=== PATIENT | female | born 1960 | race Hispanic/Latino ===

== ENCOUNTER 2018-11-04 19:52 | Emergency (ER) | payer BC ==
[2018-11-04] MEDS ORDERED: HYDROCODONE/APAP 5/325 MG TAB ONE (20:37)
[2018-11-04] MEDS ORDERED: KETOROLAC 30 MG/ML INJ ONE (20:37)
--- NOTE | 2018-11-04 21:10 | ER ---
Nurse's Notes [facility] Name: Salud Carlton Age: 58 yrs Sex: Female : 1960 Arrival Date: 11/04/2018 Time: 20:03 Bed 13 Private MD: Diagnosis: Osteoarthritis of first carpometacarpal joint, unspecified Presentation: 11/04 20:07 Presenting complaint: Patient states: "yesterday I woke up and my arm was hurting in my aj1 right wrist. My gave me this wrist thing (splint) but it's still hurting."Denies injury to right hand. Transition of care: patient was not received from another setting of care. Onset of symptoms was November 03, 2018. Risk Assessment: Do you want to hurt yourself or someone else? Patient reports no desire to harm self or others. Initial Sepsis Screen: Does the patient meet any 2 criteria? HR > 90 bpm. No. Patient's initial sepsis screen is negative. Does the patient have a suspected source of infection? No. Patient's initial sepsis screen is negative. Care prior to arrival: None. 20:07 Method Of Arrival: Ambulatory aj1 20:07 Acuity: LIZY 4 aj1 Triage Assessment: 20:10 General: Appears in no apparent distress. uncomfortable, Behavior is calm, cooperative, aj1 appropriate for age. Pain: Complains of pain in dorsal aspect of right wrist and palmar aspect of right wrist Pain currently is 10 out of 10 on a pain scale. Neuro: Level of Consciousness is awake, alert, obeys commands. Cardiovascular: Patient's skin is warm and dry. Respiratory: Airway is patent Respiratory effort is even, unlabored, Respiratory pattern is regular, symmetrical. Historical: - Allergies: 20:10 No Known Allergies; aj1 - Home Meds: 20:10 Advair Diskus Inhl [Active]; Singulair Oral [Active]; aj1 - PMHx: 20:10 Asthma; aj1 - Immunization history:: Flu vaccine is not up to date. - Social history:: Smoking status: Patient/guardian denies using tobacco. - Ebola Screening: : Patient denies travel to an Ebola-affected area in the 21 days before illness onset. Screenin:20 Abuse screen: Denies threats or abuse. Nutritional screening: No deficits noted. jb4 Tuberculosis screening: No symptoms or risk factors identified. Fall Risk None identified. Assessment: 20:20 General: Appears in no apparent distress. uncomfortable, Behavior is calm, cooperative, jb4 appropriate for age. Pain: Complains of pain in right wrist and thumb Pain radiates to right hand Pain currently is 8 out of 10 on a pain scale. Neuro: Level of Consciousness is awake, alert, obeys commands, Oriented to person, place, time, situation. Cardiovascular: Patient's skin is warm and dry. Respiratory: Airway is patent Respiratory effort is even, unlabored, Respiratory pattern is regular, symmetrical. GI: No signs and/or symptoms were reported involving the gastrointestinal system. : No signs and/or symptoms were reported regarding the genitourinary system. EENT: No signs and/or symptoms were reported regarding the EENT system. Derm: Skin is intact, Skin is pink, warm \\T\\ dry. Musculoskeletal: Circulation, motion, and sensation intact. 21:12 Reassessment: Patient appears in no apparent distress at this time. Patient and/or jb4 family updated on plan of care and expected duration. Pain level reassessed. Patient is alert, oriented x 3, equal unlabored respirations, skin warm/dry/pink. Vital Signs: 20:10 BP 146 / 92; Pulse 92; Resp 18; Temp 98.3(O); Pulse Ox 97% on R/A; Weight 107.05 kg aj1 (R); Height 5 ft. 5 in. (165.10 cm) (R); Pain 10/10; 21:12 BP 121 / 68; Pulse 76; Resp 18; Pulse Ox 96% on R/A; jb4 20:10 Body Mass Index 39.27 (107.05 kg, 165.10 cm) aj1 ED Course: 20:03 Patient arrived in ED. am2 20:09 Triage completed. aj1 20:10 Arm band placed on Patient placed in an exam room. aj1 20:12 Natasha Chun FNP-C is [facility]. snw 20:12 Ray Salazar MD is Attending Physician. snw 20:19 Giovana Kearney, RN is Primary Nurse. aj1 20:20 Patient has correct armband on for positive identification. Bed in low position. Call jb4 light in reach. Side rails up X 1. 21:09 Primary Nurse role handed off by Giovana Kearney, RN jb4 21:09 Antonio Hinojosa, RN is Primary Nurse. jb4 21:12 X-ray completed. Portable x-ray completed in exam room. Patient tolerated procedure ml well. 21:13 Wrist Right 3 View XRAY In Process Unspecified. EDMS 21:34 No provider procedures requiring assistance completed. Patient did not have IV access jb4 during this emergency room visit. Administered Medications: 20:35 Drug: TORadol 60 mg Route: IM; Site: left gluteus; aj1 21:14 Follow up: Response: No adverse reaction; Pain is decreased jb4 20:35 Drug: [place] 5 mg-325 mg 1 tabs Route: PO; aj1 21:13 Follow up: Response: No adverse reaction jb4 Outcome: 21:10 Discharge ordered by . snw 21:34 Discharged to home ambulatory, with family. jb4 21:34 Condition: stable 21:34 Discharge instructions given to patient, family, Instructed on discharge instructions, follow up and referral plans. medication usage, Demonstrated understanding of instructions, follow-up care, medications, Prescriptions given X 1. 21:36 Patient left the ED. jb4 Signatures: Dispatcher [employer] EDID Giovana Kearney, RN RN aj1 Natasha Chun, RUBBER STAMP DIES INSPECTOR-C RUBBER STAMP DIES INSPECTOR-Kristen Keating James, RN RN jb4 Davina Juarez
--- NOTE | 2018-11-04 21:10 | EDPHYS ---
Physician Documentation [facility] Name: Salud Carlton Age: 58 yrs Sex: Female : 1960 Arrival Date: 11/04/2018 Time: 20:03 Bed 13 Private MD: ED Physician Ray Salazar HPI: 11/04 20:21 This 58 yrs old Female presents to ER via Ambulatory with complaints of Hand snw Pain. 20:21 The patient or guardian reports decreased range of motion, pain, weakness. The snw complaints affect the CMC of right thumb. Context: The problem was sustained at an unknown location, resulted from a repetitive motion, works in tool room . Onset: The symptoms/episode began/occurred suddenly, today, and became worse and became persistent. Associated signs and symptoms: The patient has no apparent associated signs or symptoms. Severity of symptoms: At their worst the symptoms were moderate. The patient has not experienced similar symptoms in the past. It is unknown whether or not the patient has recently seen a physician. Historical: - Allergies: 20:10 No Known Allergies; aj1 - Home Meds: 20:10 Advair Diskus Inhl [Active]; Singulair Oral [Active]; aj1 - PMHx: 20:10 Asthma; aj1 - Immunization history:: Flu vaccine is not up to date. - Social history:: Smoking status: Patient/guardian denies using tobacco. - Ebola Screening: : Patient denies travel to an Ebola-affected area in the 21 days before illness onset. ROS: 20:20 Constitutional: Negative for fever, chills, and weight loss, Eyes: Negative for injury, snw pain, redness, and discharge, ENT: Negative for injury, pain, and discharge, Neck: Negative for injury, pain, and swelling, Cardiovascular: Negative for chest pain, palpitations, and edema, Respiratory: Negative for shortness of breath, cough, wheezing, and pleuritic chest pain, Abdomen/GI: Negative for abdominal pain, nausea, vomiting, diarrhea, and constipation, Back: Negative for injury and pain, : Negative for injury, bleeding, discharge, and swelling, MS/Extremity: Negative for injury and deformity, + right thumb/wrist pain, decreased range of motion, decreased strength secondary to pain Skin: Negative for injury, rash, and discoloration, Neuro: Negative for headache, weakness, numbness, tingling, and seizure. Exam: 20:19 Head/Face: Normocephalic, atraumatic. Eyes: Pupils equal round and reactive to light, snw extra-ocular motions intact. Lids and lashes normal. Conjunctiva and sclera are non-icteric and not injected. Cornea within normal limits. Periorbital areas with no swelling, redness, or edema. ENT: Nares patent. No nasal discharge, no septal abnormalities noted. Tympanic membranes are normal and external auditory canals are clear. Oropharynx with no redness, swelling, or masses, exudates, or evidence of obstruction, uvula midline. Mucous membranes moist. Neck: Trachea midline, no thyromegaly or masses palpated, and no cervical lymphadenopathy. Supple, full range of motion without nuchal rigidity, or vertebral point tenderness. No Meningismus. Chest/axilla: Normal chest wall appearance and motion. Nontender with no deformity. No lesions are appreciated. Cardiovascular: Regular rate and rhythm with a normal S1 and S2. No gallops, murmurs, or rubs. Normal PMI, no JVD. No pulse deficits. Respiratory: Lungs have equal breath sounds bilaterally, clear to auscultation and percussion. No rales, rhonchi or wheezes noted. No increased work of breathing, no retractions or nasal flaring. Abdomen/GI: Soft, non-tender, with normal bowel sounds. No distension or tympany. No guarding or rebound. No evidence of tenderness throughout. Back: No spinal tenderness. No costovertebral tenderness. Full range of motion. Skin: Warm, dry with normal turgor. Normal color with no rashes, no lesions, and no evidence of cellulitis. Neuro: Awake and alert, GCS 15, oriented to person, place, time, and situation. Cranial nerves II-XII grossly intact. Motor strength 5/5 in all extremities. Sensory grossly intact. Cerebellar exam normal. Normal gait. Psych: Awake, alert, with orientation to person, place and time. Behavior, mood, and affect are within normal limits. 20:19 Constitutional: The patient appears alert, awake, anxious. 20:19 Musculoskeletal/extremity: Extremities: grossly normal except: noted in the dorsal aspect of right wrist: decreased ROM, pain, ROM: limited active range of motion due to pain, in the dorsal aspect of right wrist, Circulation is intact in all extremities. Sensation intact. Compartment Syndrome exam of affected extremity: is normal. Vital Signs: 20:10 BP 146 / 92; Pulse 92; Resp 18; Temp 98.3(O); Pulse Ox 97% on R/A; Weight 107.05 kg aj1 (R); Height 5 ft. 5 in. (165.10 cm) (R); Pain 10/10; 21:12 BP 121 / 68; Pulse 76; Resp 18; Pulse Ox 96% on R/A; jb4 20:10 Body Mass Index 39.27 (107.05 kg, 165.10 cm) aj1 MDM: 20:14 Patient medically screened. snw 21:11 Data reviewed: vital signs, nurses notes. Data interpreted: Pulse oximetry: on room air snw is 97 %. Counseling: I had a detailed discussion with the patient and/or guardian regarding: the historical points, exam findings, and any diagnostic results supporting the discharge/admit diagnosis, radiology results, the need for outpatient follow up, to return to the emergency department if symptoms worsen or persist or if there are any questions or concerns that arise at home. Special discussion: I have referred the patient to see his PCP for further evaluation of high blood pressure. Based on the history and exam findings, there is no indication for further emergent testing or inpatient evaluation. I discussed with the patient/guardian the need to see the orthopedic surgeon for further evaluation of the symptoms. 11/04 20:18 Order name: Wrist Right 3 View XRAY snw 11/04 20:19 Order name: Thumb Spica Splint: right; Complete Time: 20:34 snw 11/04 21:25 Order name: EKG; Complete Time: 21:25 snw 11/04 21:25 Order name: EKG - Nurse/Tech; Complete Time: 21:33 snw Administered Medications: 20:35 Drug: TORadol 60 mg Route: IM; Site: left gluteus; aj1 21:14 Follow up: Response: No adverse reaction; Pain is decreased jb4 20:35 Drug: [place] 5 mg-325 mg 1 tabs Route: PO; aj1 21:13 Follow up: Response: No adverse reaction jb4 Disposition: 11/04/18 21:10 Discharged to Home. Impression: Osteoarthritis of first carpometacarpal joint, unspecified. - Condition is Stable. - Discharge Instructions: Arthritis, Cast or Splint Care, Adult, Cryotherapy, Heat Therapy. - Prescriptions for Mobic 7.5 mg Oral Tablet - take 1 tablet by ORAL route once daily take with food; 20 tablet. - Work release form, Medication Reconciliation Form, Thank You Letter, Antibiotic Education, Prescription Opioid Use form. - Follow up: Private Physician; When: 2 - 3 days; Reason: Recheck today's complaints, Continuance of care, Re-evaluation by your physician. Follow up: Emergency Department; When: As needed; Reason: Worsening of condition. Addendum: 11/07/2018 06:46 Co-signature as Attending Physician, Ray Salazar MD I agree with the assessment and k dr plan of care. Signatures: Dispatcher [employer] EDGiovana Sheldon, RN RN aj1 Ray Salazar MD MD [facility] Natasha Chun, DIABETES TRAINER-C DIABETES TRAINER-Csnw Antonio Hinojosa, RN RN jb4 Corrections: (The following items were deleted from the chart) 11/04 21:36 21:10 11/04/2018 21:10 Discharged to Home. Impression: Osteoarthritis of first jb4 carpometacarpal joint, unspecified. Condition is Stable. Forms are Medication Reconciliation Form, Thank You Letter, Antibiotic Education, Prescription Opioid Use. Follow up: Private Physician; When: 2 - 3 days; Reason: Recheck today's complaints, Continuance of care, Re-evaluation by your physician. Follow up: Emergency Department; When: As needed; Reason: Worsening of condition. snw
--- NOTE | 2018-11-05 09:22 | EKG ---
Test Date: 2018-11-04 Test Time: 21:28:44 Balance Assembler: SALVADOR MEASUREMENT RESULTS: Intervals: Rate: 72 SD: 136 QRSD: 88 QT: 372 QTc: 407 [place]: P: 46 SD: 136 QRS: 69 T: 50 INTERPRETIVE STATEMENTS: Normal sinus rhythm Normal ECG Compared to ECG 07/08/2010 14:18:28 No significant changes Electronically Signed On 11-05-18 09:21:14 CDT by Cesar Crouch
--- NOTE | 2018-11-05 11:29 | RAD REPORT ---
EXAM DESCRIPTION: RAD - Wrist Right 3 View - 11/04/2018 9:20 pm CLINICAL HISTORY: PAIN Pain COMPARISON: No comparisons FINDINGS: Subtle lucency is seen in the region of the scaphoid neck. If patient has snuffbox tendern ess and a history of trauma, scaphoid fracture would be possible. Otherwise, no significant bone or joint abnormality detected.
== END 2018-11-04 21:36 | disposition home or self-care (01) ==
LOC: ER 19:52
DX: M18.11 Unilateral primary osteoarthritis of first carpometacarpal joint, right hand (principal); J45.909 Unspecified asthma, uncomplicated
CPT/HCPCS: 93005; 96372; 99283

== ENCOUNTER 2020-07-22 13:20 | Emergency (ER) | payer BC ==
--- OUTSIDE RECORDS SUMMARY | 2020-07-22 13:23 | XMS REPORT | Summary of Care ---
:1960 Author Organization [facility] Address [address] [place] [id number] Care Team Providers Name Role Phone Pcp, Does Not Have A Primary Care Provider Reason for Visit Reason Onset Date Comments Refill Request 07/19/2020 Encounter Details Date Type Department Care Team Description 07/19/2020 Refill [facility] Pediatric and Doctor Unassign ed, No Refill Request Adult [facility]- [place] Name [address] [facility], [address] [place] [address] [address] [place] [address] [place] [address] Allergies No Known Allergiesdocumented as of this encounter (statuses as of 07/22/2020) Medications Medication Sig Dispensed Refills Start Date End Date Status fluticasone (FLONASE) Use 2 Sprays in 0 Active 50 mcg/Actuation nasal each nostril spray daily. montelukast Take 10 mg by 0 Acti ve (SINGULAIR) 10 mg mouth at bedtime. tablet ADVAIR DISKUS 500-50 Inhale 1 Puff 2 0 11/07/2018 Active mcg/dose inhalation (two) times daily. disk fexofenadine HCl Take 1 tablet by 0 Active (ROMULO ALLERGY ORAL) mouth daily. triamcinolone Apply to area(s) 15 g 1 12/20/2019 Active acetonide 0.1 % 2 (two) times ointmentIndications: daily. Apply to Dyshidrosis affected region of the hand nystatin 100,000 Apply to area(s) 15 g 0 04/05/2020 Active unit/gram 2 (two) times powderIndications: daily. Rash albuterol 90 Inhale 2 Puffs 8.5 g 0 04/16/2020 A ctive mcg/actuation every 4 (four) inhalerIndications: hours as needed Shortness of breath, for Wheezing or Suspected COVID-19 Shortness of virus infection Breath. fluconazole (DIFLUCAN) Take 1 tablet by 5 tablet 0 07/19/2020 Active 200 mg mouth daily. tabletIndications: Oral thrush documented as of this encounter (statuses as of 07/22/2020) Active Problems Problem Noted Date Environmental allergies 09/19/2019 Prediabetes 02/13/2019 Low libido 02/09/2019 Chronic vulvitis 02/09/2019 SANTANA (dyspnea on exertion) 02/08/2019 Chronic venous insufficiency 02/08/2019 Bilateral lower extremity edema 02/08/2019 Fatigue, unspecified type 02/08/2019 Obesity (BMI 30-39.9) 02/08/2019 Other depression 02/08/2019 Chronic right-sided low back pain without sciatica Nasal polyp 02/08/2019 documented as of this encounter (statuses as of 07/22/2020) Social History Tobacco Use Types Packs/Day Years Used Date Former Smoker Cigarettes Quit: 12/14/19 04 Smokeless Tobacco: Never Used Alcohol Use Drinks/Week oz/Week Comments Yes ocassional Sex Assigned at Date Recorded Not on file documented as of this encounter Last Filed Vital Signs Not on filedocumented in this encounter Plan of Treatment Health Maintenance Due Date Last Done Comments Depression Screening 1973 DTaP,Tdap,and Td Vaccines (1 - 1980 Tdap) COLON CANCER SCREENING ANNUAL 2011 FIT/FOBT COLON CANCER SCREENING FIT DNA 2011 EVERY 3 YEARS COLON CANCER SCREENING 2011 SIGMOIDOSCOPY EVERY 5 YEARS COLONOSCOPY 2011 Colorectal Cancer Screening 2011 Zoster Recombinant Vaccine 2011 (SHINGRIX) (1 of 2) Breast Cancer Screening 02/14/2020 02/13/2019 (MAMMOGRAM) INFLUENZA VACCINE (#1) 2020 PAP SMEAR 02/09/2022 02/09/2019 HEPATITIS C (HCV) SCREEN Completed 02/06/2019 PNEUMOCOCCAL 0-64 YEARS COMBINED Aged Out No longer eligible based on SERIES patient's age to complete this topic documented as of this encounter Results Not on filedocumented in this encounter Visit Diagnoses Diagnosis Dyshidrosis documented in this encounter Insurance Payer Benefit Plan Subscriber ID Effective Dates Phone Address Type / Group [facility] [id number] 2016-[place] [phone] [address] P[place] t [id number] [place] [address] documented as of this encounter
--- OUTSIDE RECORDS SUMMARY | 2020-07-22 13:23 | XMS REPORT | Continuity of Care Document ---
:1960 Author Organization [facility] t Address [address] [place] [place] [address] Care Team Providers Name Role Phone Wander Cisneros MD Attending Clinician Doctor Unassigned, Name Attending Clinician Unavailable Nhi HO, T Attending Clinician Unavailable Luz Maria TALBOT S Attending Clinician Provider, Urgent Care Attending Clinician Unavailable Marline Stephen Attending Clinician Nina OWENSP Attending Clinician Payers Payer Name Policy Type Policy Number Effective Date Expiration Date S ource Problems This patient has no known problems. Allergies, Adverse Reactions, Alerts Allergy Allergy Status Severity Reaction(s) Onset Inactive Treating Comm ents Source Name Type Date Date Clinician No Known DA Active U 2018-08 [facility]ie 0-24 [place] [facility] 00:00: [facility] [place] [facility] Medications This patient has no known medications. Procedures This patient has no known procedures. Encounters Start End Encounter Admission Attending Care Care Encounter Source Date/Time Date/Time Type Type Clinicians Facility Department ID 2020-07-22 2020-07-22 Refill DEE Cisneros [id number] 00:00:00 00:00:00 [facility] [id number] Edward Gianna [id number] Professio [phone] [place] [address] [address] 2020-07-19 2020-07-19 Refill Harleendeniz [facility] [id number] 00:00:00 00:00:00 Antonio Katz [id number] Eddarius Cerna [id number] Professio [phone] [address] 2020-07-19 2020-07-19 Refill Doctor [facility] [id number] 00:00:00 00:00:00 Unassigned, [place] [id number] [place] [id number] Professio [phone] [address] 2020-04-18 2020-04-18 Letter RANDY Hankins [id number] 00:00:00 00:00:00 (Out) Pennie Torres GABY [id number] [facility] [id number] [id number] 2020-04-16 2020-04-16 Emergency [facility] [id number] 20:10:00 20:59:00 Mee Katz [id number] [place] [id number] [place] [phone] [id number] 2020-04-16 2020-04-16 Patient Doctor [facility] [id number] 00:00:00 00:00:00 Secure Msg Unassigned, [facility] [id number] [place] [id number] Professio [phone] [place] [address] [address] 2020-04-05 2020-04-05 Urgent Provider, [facility] [id number] 11:29:55 12:03:59 Care [facility] [id number] Care [place] [id number] Professio [phone] [place] [address] [address] 2019-12-20 2019-12-20 Telephone Susy, [facility] [id number] 00:00:00 00:00:00 Oneyda Katz [id number] [place] [id number] [place] [phone] [place] 044 Building 2019-10-13 2019-10-13 Patient Doctor RANDY [id number] 00:00:00 00:00:00 Secure Msg Unassigned, GAB[place] [id number] [place] [facility] [id number] [id number] 2019-09-19 2019-09-19 Office Nina, [facility] [id number] 16:43:41 17:03:41 Visit [facility] [id number] [place] [id number] [place] [phone] [place] [address] [address] Results Test Description Test Time Test Comments Results Result Comments Source RENAL FUNCTION PANEL 2019-06-16 04:15:00 Test Item Value Reference Range Interpretation Comme nts SODIUM (test code = NA) 139 MMOL/L 136-143 N POTASSIUM (test code = K) 4.3 MMOL/L 3.5-5.1 N CHLORIDE (test code = CL) 103 MMOL/L 98-107 N CARBON DIOXIDE (test code = 24 mmol/L 24-31 N CO2) GLUCOSE (test code = GLU) 147 mg/dL 70-104 H BLOOD UREA NITROGEN (test 11.1 MG/DL 7.0-21.0 N code = BUN) GLOMERULAR FILTRATION RATE >=60 max estimate >60 The estimated glomerular (test code = GFR) filtration rate is computed usingpatient ra ce, age (>18), sex, and serum creatinine. If anyof the needed data pamela ments are missing the Lab oratory cannot compute an estimation of the glomerul ar filtration rate. CREATININE (test code = 0.5 mg/dL 0.8-1.5 L CREAT) ALBUMIN (test code = ALB) 4.2 G/DL 3.5-5.0 N CALCIUM (test code = CA) 8.7 mg/dL 8.8-10.2 L PHOSPHOROUS (test code = 3.5 mg/dL 2.7-4.5 N PHOS) [id number] 00:22:00 Test Item Value Reference Range Interpretation Comments GLUBED (test code = GLUBED) 150 MG/DL 70-105 H [id number] 18:17:00 Test Item Value Reference Range Interpretation Comments GLUBED (test code = GLUBED) 148 MG/DL 70-105 H UR HCG [id number] 12:12:00 Test Item Value Reference Range Interpretation Comments UR HCG QUAL (test code = HCGQLU) NEGATIVE NEGATIVE
--- OUTSIDE RECORDS SUMMARY | 2020-07-22 13:23 | XMS REPORT | Summary of Care ---
:1960 Author Organization [facility] Address [address] [place] [id number] Care Team Providers Name Role Phone Pcp, Does Not Have A Primary Care Provider Reason for Visit Reason Onset Date Comments Refill Request 07/19/2020 Encounter Details Date Type Department Care Team Description 07/19/2020 Refill [facility] Pediatric and Antonio Lopez MD Refill Request Adult Primary Care- [address] [place] [address] [place] [address], [phone] [address] [place] [address] Allergies No Known Allergiesdocumented as of this encounter (statuses as of 07/19/2020) Medications Medication Sig Dispensed Refills Start Date End Date Status fluticasone Use 2 Sprays 0 Activ e (FLONASE) 50 in each mcg/Actuation nostril daily. nasal spray montelukast Take 10 mg by 0 Acti ve (SINGULAIR) 10 mg mouth at tablet bedtime. ADVAIR DISKUS Inhale 1 Puff 0 11/07/2018 A ctive 500-50 mcg/dose 2 (two) times inhalation disk daily. fexofenadine HCl Take 1 tablet 0 Active (ROMULO ALLERGY by mouth ORAL) daily. triamcinolone Apply to 15 g 1 12/20/2019 Activ e acetonide 0.1 % area(s) 2 ointmentIndication (two) times s: Dyshidrosis daily. Apply to affected region of the hand nystatin 100,000 Apply to 15 g 0 04/05/2020 Ac tive unit/gram area(s) 2 powderIndications: (two) times Rash daily. albuterol 90 Inhale 2 Puffs 8.5 g 0 04/16/2020 A ctive mcg/actuation every 4 (four) inhalerIndications hours as : Shortness of needed for breath, Suspected Wheezing or COVID-19 virus Shortness of infection Breath. fluconazole Take 1 tablet 5 tablet 0 07/19/2020 Act jesica (DIFLUCAN) 200 mg by mouth tabletIndications: daily. Oral thrush fluconazole Take 1 tablet 5 tablet 0 12/18/2019 Dis continued (DIFLUCAN) 200 mg by mouth 0 (R eorder) tabletIndications: daily. Oral thrush documented as of this encounter (statuses as of 07/19/2020) Active Problems Problem Noted Date Environmental allergies 09/19/2019 Prediabetes 02/13/2019 Low libido 02/09/2019 Chronic vulvitis 02/09/2019 SANTANA (dyspnea on exertion) 02/08/2019 Chronic venous insufficiency 02/08/2019 Bilateral lower extremity edema 02/08/2019 Fatigue, unspecified type 02/08/2019 Obesity (BMI 30-39.9) 02/08/2019 Other depression 02/08/2019 Chronic right-sided low back pain without sciatica Nasal polyp 02/08/2019 documented as of this encounter (statuses as of 07/19/2020) Social History Tobacco Use Types Packs/Day Years [...] Comments Depression Screening 1973 DTaP,Tdap,and Td Vaccines ( - 1980 Tdap) COLON CANCER SCREENING ANNUAL [...] filedocumented in this encounter Visit Diagnoses Diagnosis Oral thrush Candidiasis of mouth documented in this encounter Insurance Payer Benefit Plan Subscriber ID Effective Dates Phone Address Type / Group BCBS OF [facility] [id number] [place] [phone] [address] P[place]/POS [place] t [id number] [place] [address] documented as of this encounter
--- OUTSIDE RECORDS SUMMARY | 2020-07-22 13:23 | XMS REPORT | Summary of Care ---
:1960 Author Organization [facility] Address [address] [place] [id number] Care Team Providers Name Role Phone Pcp, Does Not Have A Primary Care Provider Reason for Visit Reason Comments Refill Request Encounter Details Date Type Department Care Team Description 07/22/2020 Refill [facility] Pricilla keita, Antonio Viramontes MD Refill Request - [address] [place] [address] [place] [address] [phone] Allergies No Known Allergiesdocumented as of this encounter (statuses as of 07/22/2020) Medications Medication Sig Dispensed Refills Start Date End Date Status fluticasone Use 2 Sprays 0 Activ e (FLONASE) 50 in each mcg/Actuation nostril daily. nasal spray ADVAIR DISKUS Inhale 1 Puff 0 11/07/2018 [...] mg by mouth tabletIndications: daily. Oral thrush montelukast Take 1 tablet 30 tablet 11 07/22/2020 Act jesica (SINGULAIR) 10 mg by mouth at tabletIndications: bedtime. Environmental allergies montelukast Take 10 mg by 0 Disc ontinued (SINGULAIR) 10 mg mouth at 0 (R eorder) tablet bedtime. documented as of this encounter (statuses as [...] filedocumented in this encounter Visit Diagnoses Diagnosis Environmental allergies - Primary Allergic rhinitis, cause unspecified documented in this encounter Insurance Payer Benefit Plan Subscriber ID Effective Dates Phone Address Type / Group BCBS OF [facility] [id number] 2016-[place] [phone] [address] PPO/POS [place] t 7 [id number] [place] [address] documented as of this encounter
--- NOTE | 2020-07-22 14:10 | RAD REPORT ---
EXAM DESCRIPTION: Curt Single View07/22/2020 1:49 pm CLINICAL HISTORY: Chest pain COMPARISON: 2011 FINDINGS: The lungs appear clear of acute infiltrate. The heart is normal size IMPRESSION: No acute abnormalities displayed
[2020-07-22 14:37] LABS: Absolute Lymphocytes (CBC) 1.7 K/uL (0.7-4.9); Basophils % 0.8 % (0-1.3); MPV 7.7 fL (7.6-11.3); RBC Red Blood Cell Count 4.72 M/uL (3.86-4.86)
[2020-07-22] MEDS ORDERED: KETOROLAC 30 MG/ML INJ ONE (14:45)
[2020-07-22 14:59] LABS: Albumin 3.7 g/dL (3.4-5.0); Bilirubin Direct 0.1 mg/dL (0-0.2); Bilirubin Total 0.4 mg/dL (0.2-1.0); Potassium 3.7 mmol/L (3.5-5.1); Protein, Total 7.3 g/dL (6.4-8.2)
--- NOTE | 2020-07-22 15:02 | EDPHYS ---
Physician Documentation [facility] Name: Salud Carlton Age: 59 yrs Sex: Female : 1960 Arrival Date: 07/22/2020 Time: 13:23 Bed 17 Private MD: ED Physician Roland Olivo HPI: 07/22 13:33 This 59 yrs old Female presents to ER via Unassigned with complaints of kb Abdominal Pain. 13:33 The patient or guardian reports chest pain that is located primarily in the anterior kb chest wall, left lower anterior rib. Onset: 3 day(s) ago. The pain does not radiate. Associated signs and symptoms: Pertinent positives: None. The chest pain is described as sharp. Duration: The patient or guardian reports a single episode. Modifying factors: The symptoms are alleviated by nothing. the symptoms are aggravated by deep breath. Severity of pain: At its worst the pain was moderate in the emergency department the pain is unchanged. The patient has not experienced similar symptoms in the past. The patient has not recently seen a physician. Pt reports pain to left lower anterior rib area that started 3 days ago. Reports she is unsure if it is pain from abd or lung. Point tenderness upon exam, no rashes, bruising noted. Denies n/v/d/f/c. No abd tenderness upon exam. Historical: - Allergies: 13:35 No Known Allergies; ll1 - PMHx: 13:30 Asthma; ll1 - PSHx: 13:35 gastric sleeve; ll1 - Immunization history:: Flu vaccine is not up to date. - Social history:: Smoking status: Patient denies any tobacco usage or history of. ROS: 13:32 Constitutional: Negative for fever, chills, and weight loss, Respiratory: Negative for kb shortness of breath, cough, wheezing, and pleuritic chest pain, Abdomen/GI: Negative for abdominal pain, nausea, vomiting, diarrhea, and constipation, Back: Negative for injury and pain, MS/Extremity: Negative for injury and deformity, Skin: Negative for injury, rash, and discoloration, Neuro: Negative for headache, weakness, numbness, tingling, and seizure. 13:32 Cardiovascular: Positive for chest pain, of the left lower anterior ribs. Exam: 13:32 Constitutional: This is a well developed, well nourished patient who is awake, alert, kb and in no acute distress. Head/Face: Normocephalic, atraumatic. Cardiovascular: Regular rate and rhythm with a normal S1 and S2. No gallops, murmurs, or rubs. Normal PMI, no JVD. No pulse deficits. Respiratory: Lungs have equal breath sounds bilaterally, clear to auscultation and percussion. No rales, rhonchi or wheezes noted. No increased work of breathing, no retractions or nasal flaring. Abdomen/GI: Soft, non-tender, with normal bowel sounds. No distension or tympany. No guarding or rebound. No evidence of tenderness throughout. Skin: Warm, dry with normal turgor. Normal color with no rashes, no lesions, and no evidence of cellulitis. MS/ Extremity: Pulses equal, no cyanosis. Neurovascular intact. Full, normal range of motion. Neuro: Awake and alert, GCS 15, oriented to person, place, time, and situation. Cranial nerves II-XII grossly intact. Motor strength 5/5 in all extremities. Sensory grossly intact. Cerebellar exam normal. Normal gait. 13:32 Chest/axilla: Inspection: normal, Palpation: tenderness, that is moderate, of the left lower anterior rib, that totally reproduces the patient's complaints. Vital Signs: 13:35 BP 124 / 71; Pulse 68; Resp 17; Temp 98.0; Pulse Ox 97% on R/A; Weight 90.72 kg; Height ll1 5 ft. 6 in. (167.64 cm); Pain 8/10; 15:24 BP 109 / 71; Pulse 66; Resp 18; Pulse Ox 99% ; ll1 13:35 Body Mass Index 32.28 (90.72 kg, 167.64 cm) ll1 MDM: 13:24 Patient medically screened. kb 13:31 Data reviewed: vital signs, nurses notes. Data interpreted: Pulse oximetry: on room air kb is 100 %. Interpretation: normal. 15:01 Counseling: I had a detailed discussion with the patient and/or guardian regarding: the kb historical points, exam findings, and any diagnostic results supporting the discharge/admit diagnosis, lab results, radiology results, the need for outpatient follow up, a family practitioner, to return to the emergency department if symptoms worsen or persist or if there are any questions or concerns that arise at home. 07/22 14:14 Order name: Basic Metabolic Panel; Complete Time: 15:01 kb 07/22 14:14 Order name: CBC with Diff; Complete Time: 14:46 kb 07/22 13:31 Order name: Chest Single View XRAY; Complete Time: 14:14 kb 07/22 14:14 Order name: Hepatic Function; Complete Time: 15:01 kb 07/22 14:14 Order name: Lipase; Complete Time: 15:01 kb 07/22 14:14 Order name: IV Saline Lock; Complete Time: 14:26 kb 07/22 14:14 Order name: Labs collected and sent; Complete Time: 14:26 kb Administered Medications: 14:37 Drug: TORadol - Ketorolac 15 mg Route: IVP; Site: right antecubital; ll1 15:26 Follow up: Response: No adverse reaction; Pain is decreased; RASS: Alert and Calm (0) ll1 Disposition: 15:55 Co-signature as Attending Physician, Roland Olivo MD. rn Disposition: 07/22/20 15:01 Discharged to Home. Impression: Pleurisy. - Condition is Stable. - Discharge Instructions: Pleurisy, [id number]. - Prescriptions for Diclofenac Sodium 75 mg Oral Tablet, Delayed Release (E.C.) - take 1 tablet by ORAL route 2 times per day As needed; 30 tablet. - Medication Reconciliation Form, Thank You Letter, Antibiotic Education, Prescription Opioid Use form. - Follow up: Emergency Department; When: As needed; Reason: Worsening of condition. Follow up: Private Physician; When: 2 - 3 days; Reason: Recheck today's complaints, Continuance of care, Re-evaluation by your physician. Signatures: Dispatcher [employer] [facility] Deysi Ignacio, DESPATCH CLERK-C DESPATCH CLERK-Roland Watson MD MD rn Lewis, Lynsay, RN RN ll1 Corrections: (The following items were deleted from the chart) 15:28 15:01 07/22/2020 15:01 Discharged to Home. Impression: Pleurisy. Condition is Stable. ll1 Forms are Medication Reconciliation Form, Thank You Letter, Antibiotic Education, Prescription Opioid Use. Follow up: Emergency Department; When: As needed; Reason: Worsening of condition. Follow up: Private Physician; When: 2 - 3 days; Reason: Recheck today's complaints, Continuance of care, Re-evaluation by your physician. kb
--- NOTE | 2020-07-22 15:02 | ER ---
Nurse's Notes [facility] Name: Salud Carlton Age: 59 yrs Sex: Female : 1960 Arrival Date: 07/22/2020 Time: 13:23 Bed 17 Private MD: Diagnosis: Pleurisy Presentation: 07/22 13:35 Chief complaint: Patient states: L lower rib cage pain with deep inspiration for 3 ll1 days. Slight cough. No known fever. Coronavirus screen: Client denies travel out of the [place] in the last 14 days. At this time, the client does not indicate any symptoms associated with coronavirus-19. Ebola Screen: Patient denies travel to an Ebola-affected area in the 21 days before illness onset. Initial Sepsis Screen: Does the patient meet any 2 criteria? No. Patient's initial sepsis screen is negative. Does the patient have a suspected source of infection? Yes: Productive cough/pneumonia. Risk Assessment: Do you want to hurt yourself or someone else? Patient reports no desire to harm self or others. Onset of symptoms was July 20, 2020. 13:35 Method Of Arrival: Ambulatory ll1 13:35 Acuity: LIZY 4 ll1 14:22 Acuity: LIZY 3 ss Triage Assessment: 13:37 General: Appears in no apparent distress. Behavior is calm, cooperative. ll1 Historical: - Allergies: 13:35 No Known Allergies; ll1 - PMHx: 13:30 Asthma; ll1 - PSHx: 13:35 gastric sleeve; ll1 - Immunization history:: Flu vaccine is not up to date. - Social history:: Smoking status: Patient denies any tobacco usage or history of. Screenin:36 Abuse screen: Denies threats or abuse. Nutritional screening: No deficits noted. ll1 Tuberculosis screening: No symptoms or risk factors identified. Fall Risk None identified. Total Figueroa Fall Scale indicates No Risk (0-24 pts). Assessment: 13:37 General: Appears uncomfortable, Behavior is calm, cooperative, appropriate for age. ll1 Pain: Complains of pain in L rib cage Pain currently is 8 out of 10 on a pain scale. Quality of pain is described as aching, Aggravated by deep breathing. Neuro: No deficits noted. Cardiovascular: No deficits noted. Respiratory: Reports pain with cough Airway is patent Trachea midline Respiratory effort is even, unlabored, Respiratory pattern is regular, symmetrical, Breath sounds are clear bilaterally. GI: Abdomen is flat, Bowel sounds present X 4 quads. Abd is soft and non tender X 4 quads. 14:30 Reassessment: Patient and/or family updated on plan of care and expected duration. Pain ll1 level reassessed. 15:27 Reassessment: Patient and/or family updated on plan of care and expected duration. Pain ll1 level reassessed. Patient is alert, oriented x 3, equal unlabored respirations, skin warm/dry/pink. Patient states feeling better. Vital Signs: 13:35 BP 124 / 71; Pulse 68; Resp 17; Temp 98.0; Pulse Ox 97% on R/A; Weight 90.72 kg; Height ll1 5 ft. 6 in. (167.64 cm); Pain 8/10; 15:24 BP 109 / 71; Pulse 66; Resp 18; Pulse Ox 99% ; ll1 13:35 Body Mass Index 32.28 (90.72 kg, 167.64 cm) ll1 ED Course: 13:23 Patient arrived in ED. mr 13:24 Deysi Ignacio, [facility]. kb 13:24 Roland Olivo MD is Attending Physician. kb 13:29 Eitan Bishop, [place] is Primary Nurse. ll1 13:29 Arm band placed on Patient placed in an exam room, on a stretcher. ll1 13:36 Triage completed. ll1 13:37 Patient has correct armband on for positive identification. Bed in low position. Call ll1 light in reach. Side rails up X 1. Pulse ox on. NIBP on. 13:49 Chest Single View XRAY In Process Unspecified. EDMS 14:26 Inserted saline lock: 20 gauge in right antecubital area, using aseptic technique. mt Blood collected. 15:25 IV discontinued, intact, bleeding controlled, No redness/swelling at site. Pressure ll1 dressing applied. 15:27 No provider procedures requiring assistance completed. ll1 Administered Medications: 14:37 Drug: TORadol - Ketorolac 15 mg Route: IVP; Site: right antecubital; ll1 15:26 Follow up: Response: No adverse reaction; Pain is decreased; RASS: Alert and Calm (0) ll1 Outcome: 15:01 Discharge ordered by . kb 15:27 Discharged to home ambulatory. ll1 15:27 Condition: stable 15:27 Discharge instructions given to patient, Instructed on discharge instructions, follow up and referral plans. medication usage, Demonstrated understanding of instructions, follow-up care, medications, Prescriptions given X 1. 15:28 Patient left the ED. ll1 Signatures: Dispatcher [employer] EDMS Deysi Ignacio, LIBRARY MEDIA SPECIALIST-C LIBRARY MEDIA SPECIALIST-[employer] CopelandaJayne Shelby, RN RN Evelia Persaud mt, Lynsay, RN RN ll1
[2020-07-22 16:40] VITALS: TEMP 98
[2020-07-22 16:42] VITALS: BP 109/71; O2SAT 99
== END 2020-07-22 15:28 | disposition home or self-care (01) ==
LOC: ER 13:20
DX: R09.1 Pleurisy (principal)
CPT/HCPCS: 36415; 71045; 80048; 80076; 83690; 85025; 96374; 99284

== ENCOUNTER 2024-10-31 17:07 | Emergency (ER) | payer BC, SELFPAY ==
--- OUTSIDE RECORDS SUMMARY | 2024-10-31 17:12 | XMS REPORT | Continuity of Care Document ---
Author Name Unknown Address [address] [facility]. [address] [place] [address] [facility] Address [address] [facility]. [address] [place] [address] Care Team Providers Care Alterations Sewer Name Role Phone ONEYDA JAIN Primary Care Physician SLOANE Walker Attending Clinician Unavailable ONEYDA JAIN Attending Clinician Unavailable RADIOLOGY Attending Clinician Unavailable MALIKA HACKETT Attending Clinician UnavailMALIKA Lind Attending Clinician UnavailSKYLER Cardenas Attending Clinician Gary Vincent MD, Veronica Attending Clinician Unavailable ASIF RUGGIERO Attending Clinician UnavailSHERRILL Brewer Attending Clinician SHERRILL Hardwick Attending Clinician MELODY Jose Attending Clinician UnavailMELODY Pratt Attending Clinician Ambar gallardo Doctor Unassigned, [place] Attending Clinician U navailable UNKNOWN, ATTENDING Attending Clinician Unavailab Morley Ang - Db Attending Clinician Unavailable Unknown, Attending Attending Clinician Oneyda Emanuel Attending Clinician [phone] DEBBIE IGNACIO Attending Clinician Unavailable DEBBIE IGNACIO Attending Clinician Unavailable ALLEY HERNDON Attending Clinician Unavailable Alley Bolton S Attending Clinician [phone] VERONICA VINCENT Attending Clinician Unavailable NICOLETTE EUGENE Attending Clinician Unavailable Nicolette Eugene MD Attending Clinician [phone] [facility], [facility] Main Attending Clinician UnavailVENKAT Friend Attending Clinician Unavailable AGNIESZKA DRUMMOND Attending Clinician Unavaila olga Drummond ACNPAgnieszka Attending Clinician + [phone] Nurse, [facility] Attending Clinician Un available EbRad Luciano Attending Clinician [phone] RAD HUNTER Attending Clinician Unavailable Roseline Meza MD Attending Clinician [phone] Venkat Rivera PA-C Attending Clinician [phone] JESSICA CHAVEZ Attending Clinician Unavailable Jessica Chavez MD Attending Clinician [phone] NurseToby Attending Clinician Unavailable CAMILLA ROSARIO Attending Clinician Unavailable Sherif Weber DO Attending Clinician [phone] [facility] Attending Clinician Un available Trae Flynn Attending Clinician [phone] TRAE WOOD Attending Clinician Unavailable ROSELINE MEZA Attending Clinician Unavailab ELENI Whitaker Attending Clinician Unabuck Osorio MD, Skyler Viramontes Attending Clinician [phone] ZENAIDA DALEY Attending Clinician Unavaila olga Hankins RN, Pennie Macdonald Attending Clinician Unavailab Mee Yan S Attending Clinician [phone] Francesco BORJAS, Belkis Harp Attending Clinician + [phone] [facility] Cardio Echo Attending Clinician NICOLETTE Jacinto Admitting Clinician Unavailable AGNIESZKA DRUMMOND Admitting Clinician Unavaila JESSICA Sargent Admitting Clinician Unavailable Payers Payer Name Policy Type Policy Number Effective Date Expirati on Date Source [facility] [id number] 2016 00:00:00 [facility] O [id number] 2023 00:00:00 Problems Condition Name Condition Details Condition Category Status Onset Date Resolution Date Last Treatment Date Treating Clinician Comments Source Routine gynecologi jose examinatio n Routine gynecologi jose examinatio n Disease Active 2021-08 00:00: 00 [facility] Breast implant status Breast implant status Disease Active 2021-08 00:00: 00 [facility] BMI 29.0-29.9, adult BMI 29.0-29.9, adult Disease Active 2021-08 00:00: 00 [facility] Low TSH level Low TSH level Disease Active 2020-08 00:00: 00 [facility] HSV infection HSV infection Disease Active 2020-08 00:00: 00 [facility] Environmen eulogio allergies Environmen eulogio allergies Disease Active 09-19 00:00: 00 [facility] Prediabete s Prediabete s Disease Active 02-13 00:00: 00 [facility] Lichen sclerosus of female genitalia Lichen sclerosus of female genitalia Disease Active 02-09 00:00: 00 [facility] Low libido Low libido Disease Active 02-09 00:00: 00 [facility] Chronic vulvitis Chronic vulvitis Disease Active 02-09 00:00: 00 [facility] Bilateral lower extremity edema Bilateral lower extremity edema Disease Active 02-08 00:00: 00 [facility] SANTANA (dyspnea on exertion) SANTANA (dyspnea on exertion) Disease Active 02-08 00:00: 00 [facility] Chronic venous insufficie ncy Chronic venous insufficie ncy Disease Active 02-08 00:00: 00 [facility] Fatigue, unspecifie d type Fatigue, unspecifie d type Disease Active 02-08 00:00: 00 [facility] Obesity (BMI 30-39.9) Obesity (BMI 30-39.9) Disease Active 02-08 00:00: 00 [facility] Other depression Other depression Disease Active 02-08 00:00: 00 [facility] Chronic right-side d low back pain without sciatica Chronic right-side d low back pain without sciatica Disease Active 02-08 00:00: 00 [facility] Nasal polyp Nasal polyp Disease Active 02-08 00:00: 00 [facility] Allergies, Adverse Reactions, Alerts Allergy Name Allergy Type Status Severity Reaction(s) Onset Date Inactive Date Treating Clinician Comments Source No Known Allergie s DA Active U 2018-08 00:00: 00 [facility] NO KNOWN ALLERGIE S Drug Class Active [facility] Social History Social Habit Start Date Stop Date Quantity Comments Source Gender identity [facility] Alcohol Frequency [facility] History SDOH Alcohol Std Drinks [facility] History SDOH Alcohol Binge [facility] Alcohol intake 2023-07-23 00:00:00 2023-07-23 00:00:00 Current drinker of alcohol (finding) [facility] History of Social function 2022-10-23 00:00:00 2022-10-23 00:00:00 [facility] Exposure to SARS-CoV-2 (event) 2022-10-12 00:00:00 2022-10-22 13:50:00 Not sure [facility] Tobacco use and exposure 2022-03-24 00:00:00 2022-03-24 00:00:00 Smokeless tobacco non-user [facility] Alcohol Comment 2018-12-13 00:00:00 2018-12-13 00:00:00 ocassional [facility] History of tobacco use 2003-12-14 00:00:00 Cigarette Smoker [facility] Sex Assigned At 1960 00:00:00 1960 00:00:00 [facility] Smoking Status Start Date Stop Date Source Ex-smoker 2022-03-24 00:00:2022-03-24 00:00:00 [facility] Medications Ordered Medication Name Filled Medication Name Start Date Stop Date Current Medication? Ordering Clinician Indication Dosage Frequency Signature (SIG) Comments Components Source estradioL 0.01 % (0.1 mg/gram) vaginal cream 2022-08 00:00: 00 Yes [id number] 2g Insert 2 g into vagina 2 (two) times per week. [facility] clobetasoL 0.05 % cream 2022-08 00:00: 00 Yes [id number] Apply to area(s) 2 (two) times daily. [facility] ketoconazol e 2 % shampoo 2022-08 00:00: 00 Yes [id number] Apply shampoo 2x/week x 8 weeks, then prn. Leave on x 3-5 minutes prior to rinsing. [facility] albuterol 90 mcg/actuati on inhaler 2022-08 00:00: 00 Yes [id number] 2{puff} Inhale 2 Puffs every 6 (six) hours as needed for Wheezing. [facility] azithromyci n 250 mg tablet 2022-08 00:00: 00 06-30 00:00 :00 No [id number] Take 500 mg PO day 1, then 250 mg PO days 2 to 5 [facility] methylPREDN ISolone (MEDROL, DMITRY,) 4 mg tablets 2022-08 00:00: 00 06-30 00:00 :00 No [id number] Take by mouth SEE-INSTRU CTIONS. follow package directions [facility] benzonatate (TESSALON PERLES) 100 mg capsule 2022-08 00:00: 00 06-30 00:00 :00 No [id number] 100mg Take 1 capsule by mouth every 8 (eight) hours as needed for Cough. [facility] vibegron (GEMTESA) 75 mg Tab 03-22 00:00: 00 Yes [id number] 75mg Take 75 mg by mouth in the morning. [facility] triamcinolo ne acetonide (KENALOG) injection 40 mg 03-05 16:15: 00 03-05 15:25 :00 No [id number] 9100 40mg [facility] naproxen (NAPROSYN) tablet 500 mg 02-12 22:30: 00 02-12 21:53 :00 No 500mg 500 mg, Oral, ONCE NOW, 1 dose, On Wed02/12/23 at 1730, ROYER [facility] phentermine 37.5 mg capsule 10-23 13:50: 58 10-23 00:00 :00 No 37.5mg Take 37.5 mg by mouth every morning. [facility] phentermine 37.5 mg capsule 10-15 16:57: 00 Yes 37.5mg Take 37.5 mg by mouth every morning. [facility] azelastine 137 mcg (0.1 %) nasal spray 10-15 00:00: 00 Yes [id number] 1{spray } Use 1 [place] in each nostril in the morning and 1 [place] in the evening. Use in each nostril as directed [facility] amoxicillin -pot clavulanate 500 mg (AUGMENTIN) 500-125 mg tablet 2021-08 00:00: 00 08-08 05:59 :00 No [id number] 500mg Take 1 tablet by mouth in the morning and 1 tablet at noon and 1 tablet in the evening. Do all this for 7 days. [facility] ampicillin 500 mg capsule 2021-08 00:00: 00 08-07 05:59 :00 No [id number] 500mg Take 1 capsule by mouth every 6 (six) hours for 7 days. [facility] clobetasoL 0.05 % cream 2021-08 00:00: 00 10-23 00:00 :00 No [id number] Apply to area(s) 2 (two) times daily. [facility] phentermine 37.5 mg tablet 05-20 00:00: 00 Yes 37.5mg Take 1 tablet by mouth in the morning. [facility] ketorolac (TORADOL) injection 30 mg 03-25 01:00: 00 03-24 23:55 :00 No 30mg 30 mg, Intramuscu lar, ONCE, 1 dose, On Wed03/24/22 at 2000, Routine [facility] phentermine 37.5 mg capsule 2020-08 16:10: 13 Yes 37.5mg Take 37.5 mg by mouth every morning. [facility] clobetasoL 0.05 % ointment 2020-08 00:00: 00 10-23 00:00 :00 No [id number] Apply to area(s) 2 (two) times daily. [facility] amoxicillin 500 mg capsule 2020-08 00:00: 00 10-15 00:00 :00 No [id number] 500mg Take 1 capsule by mouth 3 (three) times daily. [facility] phenazopyri dine 200 mg tablet 2020-08 00:00: 00 10-15 00:00 :00 No [id number] 200mg Take 1 tablet by mouth 3 (three) times daily. [facility] methylPREDN ISolone 4 mg tablets 2020-08 00:00: 00 10-15 00:00 :00 No [id number] Take by mouth SEE-INSTRU CTIONS. follow package directions [facility] fluticasone (FLONASE) 50 mcg/Actuati on nasal spray 2020-08 15:03: 50 06-18 00:00 :00 No 2{spray } Use 2 Sprays in each nostril daily. [facility] fexofenadin e HCl (ROMULO ALLERGY ORAL) 2020-08 15:03: 21 06-18 00:00 :00 No 1{tbl} Take 1 tablet by mouth daily. [facility] loratadine- pseudoephed rine (CLARITIN-D 24 HOUR) 10-240 mg per 24 hr tablet 03-08 00:00: 00 06-30 00:00 :00 No [id number] 1{tbl} Take 1 tablet by mouth daily. [facility] albuterol 90 mcg/actuati on inhaler 03-08 00:00: 00 10-23 00:00 :00 No [id number] 2{puff} Inhale 2 Puffs every 4 (four) hours as needed for Wheezing or Shortness of Breath. [facility] benzonatate 100 mg capsule 03-08 00:00: 00 06-18 00:00 :00 No [id number] 100mg Take 1 capsule by mouth 3 (three) times daily as needed for Cough. [facility] montelukast (SINGULAIR) 10 mg tablet 10-31 00:00: 00 06-30 00:00 :00 No [id number] 10mg Take 1 tablet by mouth daily. [facility] azelastine- fluticasone (DYMISTA) 137-50 mcg/spray nasal spray 2019-08 00:00: 10-15 00:00 :00 No [id number] 1{spray } Use 1 [place] in each nostril 2 (two) times daily. If not covered, Rx fluticason e & Rx azelastine nasal sprays 1 spray each BID, 11 refills [facility] predniSONE 10 mg tablet 2019-08 00:00: 06-18 00:00 :00 No [id number] Take 4 tab QAM with breakfast days 1-7, 3 tab day 8, 2 tab day 9, 1 tab day 10 #34 total [facility] MONTELUKAST 10 mg tablet 2019-08 00:00: 00 06-18 00:00 :00 No [id number] TAKE 1 TABLET BY MOUTH EVERYDAY AT BEDTIME [facility] montelukast (SINGULAIR) 10 mg tablet 2019-08 10:53: 33 07-22 00:00 :00 No 10mg Take 10 mg by mouth at bedtime. [facility] diclofenac 75 mg EC tablet 2019-08 00:00: 06-18 00:00 :00 No TAKE 1 TABLET BY MOUTH TWICE A DAY NEEDED [facility] fluconazole (DIFLUCAN) 200 mg tablet 2019-08 00:00: 00 06-18 00:00 :00 No [id number] 200mg Take 1 tablet by mouth daily. [facility] NASCOBAL 500 mcg/spray [place] 928 00:00: 00 Yes USE 1 SPRAY IN NOSTRIL EVERY WEEK [facility] albuterol 90 mcg/actuati on inhaler 04-16 00:00: 00 06-25 00:00 :00 No [id number] 2{puff} Inhale 2 Puffs every 4 (four) hours as needed for Wheezing or Shortness of Breath. [facility] nystatin 100,000 unit/gram powder 8-14 00:00: 00 06-18 00:00 :00 No [id number] Apply to area(s) 2 (two) times daily. [facility] triamcinolo ne acetonide 0.1 % ointment 12-19 00:00: 00 06-18 00:00 :00 No [id number] Apply to area(s) 2 (two) times daily. Apply to affected region of the hand [facility] fluconazole (DIFLUCAN) 200 mg tablet 12-17 00:00: 07-19 16:49 :07 No [id number] 200mg Take 1 tablet by mouth daily. [facility] ADVAIR DISKUS 500-50 mcg/dose inhalation disk 318 00:00: 00 Yes 1{puff} Inhale 1 Puff in the morning and 1 Puff in the evening. [facility] Immunizations Ordered Immunization Name Filled Immunization Name Date Status Comments Source TDAP 2021-06-18 00:00:00 Completed [facility] Influenza Virus Vaccine Quad IM, Preserv and ABX Free 6 MO-64 YRS 2021-06-18 00:00:00 Completed [facility] TDAP 2021-06-18 00:00:00 Completed [facility] Influenza Virus Vaccine Quad IM, Preserv and ABX Free 6 MO-64 YRS 2021-06-18 00:00:00 Completed [facility] TDAP 2021-06-18 00:00:00 Completed [facility] Influenza Virus Vaccine Quad IM, Preserv and ABX Free 6 MO-64 YRS 2021-06-18 00:00:00 Completed [facility] TDAP 2021-06-18 00:00:00 Completed [facility] Influenza Virus Vaccine Quad IM, Preserv and ABX Free 6 MO-64 YRS 2021-06-18 00:00:00 Completed [facility] TDAP 2021-06-18 00:00:00 Completed [facility] Influenza Virus Vaccine Quad IM, Preserv and ABX Free 6 MO-64 YRS 2021-06-18 00:00:00 Completed [facility] TDAP 2021-06-18 00:00:00 Completed [facility] Influenza Virus Vaccine Quad IM, Preserv and ABX Free 6 MO-64 YRS 2021-06-18 00:00:00 Completed [facility] TDAP 2021-06-18 00:00:00 Completed [facility] Influenza Virus Vaccine Quad IM, Preserv and ABX Free 6 MO-64 YRS 2021-06-18 00:00:00 Completed [facility] TDAP 2021-06-18 00:00:00 Completed [facility] Influenza Virus Vaccine Quad IM, Preserv and ABX Free 6 MO-64 YRS 2021-06-18 00:00:00 Completed [facility] TDAP 2021-06-18 00:00:00 Completed [facility] Influenza Virus Vaccine Quad IM, Preserv and ABX Free 6 MO-64 YRS 2021-06-18 00:00:00 Completed [facility] TDAP 2021-06-18 00:00:00 Completed [facility] Influenza Virus Vaccine Quad IM, Preserv and ABX Free 6 MO-64 YRS 2021-06-18 00:00:00 Completed [facility] TDAP 2021-06-18 00:00:00 Completed [facility] Influenza Virus Vaccine Quad IM, Preserv and ABX Free 6 MO-64 YRS 2021-06-18 00:00:00 Completed [facility] TDAP 2021-06-18 00:00:00 Completed [facility] Influenza Virus Vaccine Quad IM, Preserv and ABX Free 6 MO-64 YRS 2021-06-18 00:00:00 Completed [facility] TDAP 2021-06-18 00:00:00 Completed [facility] Influenza Virus Vaccine Quad IM, Preserv and ABX Free 6 MO-64 YRS 2021-06-18 00:00:00 Completed [facility] TDAP 2021-06-18 00:00:00 Completed [facility] Influenza Virus Vaccine Quad IM, Preserv and ABX Free 6 MO-64 YRS 2021-06-18 00:00:00 Completed [facility] TDAP 2021-06-18 00:00:00 Completed [facility] Influenza Virus Vaccine Quad IM, Preserv and ABX Free 6 MO-64 YRS 2021-06-18 00:00:00 Completed [facility] TDAP 2021-06-18 00:00:00 Completed [facility] Influenza Virus Vaccine Quad IM, Preserv and ABX Free 6 MO-64 YRS 2021-06-18 00:00:00 Completed [facility] TDAP 2021-06-18 00:00:00 Completed [facility] Influenza Virus Vaccine Quad IM, Preserv and ABX Free 6 MO-64 YRS 2021-06-18 00:00:00 Completed [facility] TDAP 2021-06-18 00:00:00 Completed [facility] Influenza Virus Vaccine Quad IM, Preserv and ABX Free 6 MO-64 YRS 2021-06-18 00:00:00 Completed [facility] TDAP 2021-06-18 00:00:00 Completed [facility] Influenza Virus Vaccine Quad IM, Preserv and ABX Free 6 MO-64 YRS 2021-06-18 00:00:00 Completed [facility] TDAP 2021-06-18 00:00:00 Completed [facility] Influenza Virus Vaccine Quad IM, Preserv and ABX Free 6 MO-64 YRS 2021-06-18 00:00:00 Completed [facility] TDAP 2021-06-18 00:00:00 Completed [facility] Influenza Virus Vaccine Quad IM, Preserv and ABX Free 6 MO-64 YRS 2021-06-18 00:00:00 Completed [facility] TDAP 2021-06-18 00:00:00 Completed [facility] Influenza Virus Vaccine Quad IM, Preserv and ABX Free 6 MO-64 YRS 2021-06-18 00:00:00 Completed [facility] TDAP 2021-06-18 00:00:00 Completed [facility] Influenza Virus Vaccine Quad IM, Preserv and ABX Free 6 MO-64 YRS 2021-06-18 00:00:00 Completed [facility] SARS-COV-2 COVID-19 PFIZER VACCINE 2020-11-30 00:00:00 Completed [facility] SARS-COV-2 COVID-19 PFIZER VACCINE 2020-11-30 00:00:00 Completed [facility] SARS-COV-2 COVID-19 PFIZER VACCINE 2020-11-30 00:00:00 Completed [facility] SARS-COV-2 COVID-19 PFIZER VACCINE 2020-11-30 00:00:00 Completed [facility] SARS-COV-2 COVID-19 PFIZER VACCINE 2020-11-30 00:00:00 Completed [facility] SARS-COV-2 COVID-19 PFIZER VACCINE 2020-11-30 00:00:00 Completed [facility] SARS-COV-2 COVID-19 PFIZER VACCINE 2020-11-30 00:00:00 Completed [facility] SARS-COV-2 COVID-19 PFIZER VACCINE 2020-11-30 00:00:00 Completed [facility] SARS-COV-2 COVID-19 PFIZER VACCINE 2020-11-30 00:00:00 Completed [facility] SARS-COV-2 COVID-19 PFIZER VACCINE 2020-11-30 00:00:00 Completed [facility] SARS-COV-2 COVID-19 PFIZER VACCINE 2020-11-30 00:00:00 Completed [facility] SARS-COV-2 COVID-19 PFIZER VACCINE 2020-11-30 00:00:00 Completed [facility] SARS-COV-2 COVID-19 PFIZER VACCINE 2020-11-30 00:00:00 Completed [facility] SARS-COV-2 COVID-19 PFIZER VACCINE 2020-11-30 00:00:00 Completed [facility] SARS-COV-2 COVID-19 PFIZER VACCINE 2020-11-30 00:00:00 Completed [facility] SARS-COV-2 COVID-19 PFIZER VACCINE 2020-11-30 00:00:00 Completed [facility] SARS-COV-2 COVID-19 PFIZER VACCINE 2020-11-30 00:00:00 Completed [facility] SARS-COV-2 COVID-19 PFIZER VACCINE 2020-11-30 00:00:00 Completed [facility] SARS-COV-2 COVID-19 PFIZER VACCINE 2020-11-30 00:00:00 Completed [facility] SARS-COV-2 COVID-19 PFIZER VACCINE 2020-11-30 00:00:00 Completed [facility] SARS-COV-2 COVID-19 PFIZER VACCINE 2020-11-30 00:00:00 Completed [facility] SARS-COV-2 COVID-19 PFIZER VACCINE 2020-11-30 00:00:00 Completed [facility] SARS-COV-2 COVID-19 PFIZER VACCINE 2020-11-30 00:00:00 Completed [facility] SARS-COV-2 COVID-19 PFIZER VACCINE 2020-11-09 00:00:00 Completed [facility] SARS-COV-2 COVID-19 PFIZER VACCINE 2020-11-09 00:00:00 Completed [facility] SARS-COV-2 COVID-19 PFIZER VACCINE 2020-11-09 00:00:00 Completed [facility] SARS-COV-2 COVID-19 PFIZER VACCINE 2020-11-09 00:00:00 Completed [facility] SARS-COV-2 COVID-19 PFIZER VACCINE 2020-11-09 00:00:00 Completed [facility] SARS-COV-2 COVID-19 PFIZER VACCINE 2020-11-09 00:00:00 Completed [facility] SARS-COV-2 COVID-19 PFIZER VACCINE 2020-11-09 00:00:00 Completed [facility] SARS-COV-2 COVID-19 PFIZER VACCINE 2020-11-09 00:00:00 Completed [facility] SARS-COV-2 COVID-19 PFIZER VACCINE 2020-11-09 00:00:00 Completed [facility] SARS-COV-2 COVID-19 PFIZER VACCINE 2020-11-09 00:00:00 Completed [facility] SARS-COV-2 COVID-19 PFIZER VACCINE 2020-11-09 00:00:00 Completed [facility] SARS-COV-2 COVID-19 PFIZER VACCINE 2020-11-09 00:00:00 Completed [facility] SARS-COV-2 COVID-19 PFIZER VACCINE 2020-11-09 00:00:00 Completed [facility] SARS-COV-2 COVID-19 PFIZER VACCINE 2020-11-09 00:00:00 Completed [facility] SARS-COV-2 COVID-19 PFIZER VACCINE 2020-11-09 00:00:00 Completed [facility] SARS-COV-2 COVID-19 PFIZER VACCINE 2020-11-09 00:00:00 Completed [facility] SARS-COV-2 COVID-19 PFIZER VACCINE 2020-11-09 00:00:00 Completed [facility] SARS-COV-2 COVID-19 PFIZER VACCINE 2020-11-09 00:00:00 Completed [facility] SARS-COV-2 COVID-19 PFIZER VACCINE 2020-11-09 00:00:00 Completed [facility] SARS-COV-2 COVID-19 PFIZER VACCINE 2020-11-09 00:00:00 Completed [facility] SARS-COV-2 COVID-19 PFIZER VACCINE 2020-11-09 00:00:00 Completed [facility] SARS-COV-2 COVID-19 PFIZER VACCINE 2020-11-09 00:00:00 [facility]pleted [facility] [facility] SARS-COV-2 COVID-19 PFIZER VACCINE 2020-11-09 00:00:00 Completed [facility] SARS-COV-2 COVID-19 PFIZER VACCINE Unknown Completed [facility] TDAP Unknown Completed [facility] Influenza Virus Vaccine Quad IM, Preserv and ABX Free 6 MO-64 YRS (FLUCELVAX) Unknown Completed [facility] SARS-COV-2 COVID-19 PFIZER VACCINE Unknown Completed [facility] TDAP Unknown Completed [facility] Influenza Virus Vaccine Quad IM, Preserv and ABX Free 6 MO-64 YRS (FLUCELVAX) Unknown Completed [facility] SARS-COV-2 COVID-19 PFIZER VACCINE Unknown Completed [facility] TDAP Unknown Completed [facility] Influenza Virus Vaccine Quad IM, Preserv and ABX Free 6 MO-64 YRS (FLUCELVAX) Unknown Completed [facility] SARS-COV-2 COVID-19 PFIZER VACCINE Unknown Completed [facility] TDAP Unknown Completed [facility] Influenza Virus Vaccine Quad IM, Preserv and ABX Free 6 MO-64 YRS (FLUCELVAX) Unknown Completed [facility] SARS-COV-2 COVID-19 PFIZER VACCINE Unknown Completed [facility] TDAP Unknown Completed [facility] Influenza Virus Vaccine Quad IM, Preserv and ABX Free 6 MO-64 YRS (FLUCELVAX) Unknown Completed [facility] SARS-COV-2 COVID-19 PFIZER VACCINE Unknown Completed [facility] SARS-COV-2 COVID-19 PFIZER VACCINE Unknown Completed [facility] TDAP Unknown Completed [facility] Influenza Virus Vaccine Quad IM, Preserv and ABX Free 6 MO-64 YRS (FLUCELVAX) Unknown Completed [facility] TDAP Unknown Completed [facility] Influenza Virus Vaccine Quad IM, Preserv and ABX Free 6 MO-64 YRS (FLUCELVAX) Unknown Completed [facility] SARS-COV-2 COVID-19 PFIZER VACCINE Unknown Completed [facility] SARS-COV-2 COVID-19 PFIZER VACCINE Unknown Completed [facility] TDAP Unknown Completed [facility] Influenza Virus Vaccine Quad IM, Preserv and ABX Free 6 MO-64 YRS (FLUCELVAX) Unknown Completed [facility] TDAP Unknown Completed [facility] Influenza Virus Vaccine Quad IM, Preserv and ABX Free 6 MO-64 YRS (FLUCELVAX) Unknown Completed [facility] SARS-COV-2 COVID-19 PFIZER VACCINE Unknown Completed [facility] SARS-COV-2 COVID-19 PFIZER VACCINE Unknown Completed [facility] TDAP Unknown Completed [facility] Influenza Virus Vaccine Quad IM, Preserv and ABX Free 6 MO-64 YRS (FLUCELVAX) Unknown Completed [facility] SARS-COV-2 COVID-19 PFIZER VACCINE Unknown Completed [facility] TDAP Unknown Completed [facility] Influenza Virus Vaccine Quad IM, Preserv and ABX Free 6 MO-64 YRS (FLUCELVAX) Unknown Completed [facility] SARS-COV-2 COVID-19 PFIZER VACCINE Unknown Completed [facility] TDAP Unknown Completed [facility] Influenza Virus Vaccine Quad IM, Preserv and ABX Free 6 MO-64 YRS (FLUCELVAX) Unknown Completed [facility] SARS-COV-2 COVID-19 PFIZER VACCINE Unknown Completed [facility] TDAP Unknown Completed [facility] Influenza Virus Vaccine Quad IM, Preserv and ABX Free 6 MO-64 YRS (FLUCELVAX) Unknown Completed [facility] TDAP Unknown Completed [facility] Influenza Virus Vaccine Quad IM, Preserv and ABX Free 6 MO-64 YRS (FLUCELVAX) Unknown Completed [facility] SARS-COV-2 COVID-19 PFIZER VACCINE Unknown Completed [facility] SARS-COV-2 COVID-19 PFIZER VACCINE Unknown Completed [facility] TDAP Unknown Completed [facility] Influenza Virus Vaccine Quad IM, Preserv and ABX Free 6 MO-64 YRS (FLUCELVAX) Unknown Completed [facility] SARS-COV-2 COVID-19 PFIZER VACCINE Unknown Completed [facility] TDAP Unknown Completed [facility] Influenza Virus Vaccine Quad IM, Preserv and ABX Free 6 MO-64 YRS (FLUCELVAX) Unknown Completed [facility] Vital Signs Vital Name Observation Time Observation Value Comments S ource Systolic blood pressure 2023-07-23 22:26:00 114 mm[Hg] [facility] Diastolic blood pressure 2023-07-23 22:26:00 76 mm[Hg] [facility] Heart rate 2023-07-23 22:26:00 88 /min [facility] Body temperature 2023-07-23 22:26:00 36.39 Brittany [facility] Body height 2023-07-23 22:26:00 160 cm [facility] Body weight 2023-07-23 22:26:00 88.179 kg [facility] BMI 2023-07-23 22:26:00 34.44 kg/m2 [facility] Systolic blood pressure 2023-06-30 20:38:00 135 mm[Hg] [place] [facility] Diastolic blood pressure 2023-06-30 20:38:00 74 mm[Hg] [facility] Heart rate 2023-06-30 20:38:00 100 /min [facility] Body height 2023-06-30 20:38:00 160 cm [facility] weight 2023-06-30 20:38:00 87.136 kg [facility] BMI 2023-06-30 20:38:00 34.03 kg/m2 [facility] Oxygen saturation in Arterial blood by Pulse oximetry 2023-06-30 20:38:00 99 /min [facility] Systolic blood pressure 2023-06-25 16:42:00 126 mm[Hg] [facility] Diastolic blood pressure 2023-06-25 16:42:00 64 mm[Hg] [facility] Heart rate 2023-06-25 16:42:00 93 /min [facility] Respiratory rate 2023-06-25 16:42:00 20 /min [facility] Body height 2023-06-25 16:42:00 161 cm [facility] Body weight 2023-06-25 16:42:00 88.361 kg [facility] BMI 2023-06-25 16:42:00 34.09 kg/m2 [facility] Oxygen saturation in Arterial blood by Pulse oximetry 2023-06-25 16:42:00 97 /min [facility] Systolic blood pressure 2023-03-05 14:17:00 114 mm[Hg] [facility] Diastolic blood pressure 2023-03-05 14:17:00 77 mm[Hg] [facility] Heart rate 2023-03-05 14:17:00 90 /min [facility] Body height 2023-03-05 14:17:00 162.6 cm [facility] Body weight 2023-03-05 14:17:00 84.732 kg [facility] BMI 2023-03-05 14:17:00 32.06 kg/m2 [facility] Systolic blood pressure 2023-02-12 18:40:00 144 mm[Hg] [facility] Diastolic blood pressure 2023-02-12 18:40:00 82 mm[Hg] [facility] Heart rate 2023-02-12 18:40:00 99 /min [facility] Body temperature 2023-02-12 18:40:00 36.72 Brittany [facility] Respiratory rate 2023-02-12 18:40:00 20 /min [facility] Body height 2023-02-12 18:40:00 162.6 cm [facility] Body weight 2023-02-12 18:40:00 81.647 kg [facility] BMI 2023-02-12 18:40:00 30.90 kg/m2 [facility] Oxygen saturation in Arterial blood by Pulse oximetry 2023-02-12 18:40:00 100 /min [facility] Systolic blood pressure 2022-10-23 19:48:00 130 mm[Hg] [facility] Diastolic blood pressure 2022-10-23 19:48:00 76 mm[Hg] [facility] Heart rate 2022-10-23 19:48:00 83 /min [facility] Body temperature 2022-10-23 19:48:00 36.11 Brittany [facility] Respiratory rate 2022-10-23 19:48:00 16 /min [facility] Body height 2022-10-23 19:48:00 161.3 cm [facility] Body weight 2022-10-23 19:48:00 84.006 kg [facility] BMI 2022-10-23 19:48:00 32.29 kg/m2 [facility] Oxygen saturation in Arterial blood by Pulse oximetry 2022-10-23 19:48:00 98 /min room air [facility] Systolic blood pressure 2022-10-15 22:49:00 125 mm[Hg] [facility] Diastolic blood pressure 2022-10-15 22:49:00 78 mm[Hg] [facility] Heart rate 2022-10-15 22:49:00 83 /min [facility] Body height 2022-10-15 22:49:00 167.6 cm [facility] Body weight 2022-10-15 22:49:00 81.647 kg [facility] BMI 2022-10-15 22:49:00 29.05 kg/m2 [facility] Oxygen saturation in Arterial blood by Pulse oximetry 2022-10-15 22:49:00 99 /min [facility] Systolic blood pressure 2022-07-20 17:31:00 138 mm[Hg] [facility] Diastolic blood pressure 2022-07-20 17:31:00 89 mm[Hg] [facility] Heart rate 2022-07-20 17:31:00 68 /min [facility] Body temperature 2022-07-20 17:31:00 36.72 Brittany [facility] Respiratory rate 2022-07-20 17:31:00 18 /min [facility] Body height 2022-07-20 17:31:00 167.6 cm [facility] Body weight 2022-07-20 17:31:00 82.101 kg [facility] BMI 2022-07-20 17:31:00 29.21 kg/m2 [facility] Systolic blood pressure 2022-03-25 01:06:00 113 mm[Hg] [facility] Diastolic blood pressure 2022-03-25 01:06:00 81 mm[Hg] [facility] Heart rate 2022-03-25 01:06:00 83 /min [facility] Respiratory rate 2022-03-25 01:06:00 16 /min [facility] Oxygen saturation in Arterial blood by Pulse oximetry 2022-03-25 01:06:00 98 /min [facility] Body temperature 2022-03-24 23:46:00 36.89 Brittany [facility] Body weight 2022-03-24 23:46:00 72.576 kg [facility] BMI 2022-03-24 23:46:00 25.82 kg/m2 [facility] Systolic blood pressure 2022-03-24 23:27:00 137 mm[Hg] [facility] Diastolic blood pressure 2022-03-24 23:27:00 85 mm[Hg] [facility] Heart rate 2022-03-24 23:27:00 88 /min [facility] Body temperature 2022-03-24 23:27:00 36.67 Brittany [facility] Respiratory rate 2022-03-24 23:27:00 18 /min [facility] Body height 2022-03-24 23:27:00 167.6 cm [facility] Body weight 2022-03-24 23:27:00 74.39 kg [facility] BMI 2022-03-24 23:27:00 26.47 kg/m2 [facility] Oxygen saturation in Arterial blood by Pulse oximetry 2022-03-24 23:27:00 100 /min [facility] Systolic blood pressure 2021-07-09 21:42:00 132 mm[Hg] [facility] Diastolic blood pressure 2021-07-09 21:42:00 81 mm[Hg] [facility] Heart rate 2021-07-09 21:42:00 80 /min [facility] Body temperature 2021-07-09 21:42:00 36.72 Brittany [facility] Respiratory rate 2021-07-09 21:42:00 18 /min [facility] Body height 2021-07-09 21:42:00 167.6 cm [facility] Body weight 2021-07-09 21:42:00 83.462 kg [facility] BMI 2021-07-09 21:42:00 29.70 kg/m2 [facility] Procedures Procedure Date / Time Performed Performing Clinician Source CONSENT/REFUSAL FOR DIAGNOSIS AND TREATMENT 2023-07-23 22:19:21 Doctor Unassigned, [place] [facility] XR CHEST 2 VW 2023-06-25 18:09:23 Oneyda Jain [facility] POCT URINALYSIS W/O SPECIFIC GRAVITY 2023-03-22 19:26:00 Debbie Ignacio [facility] PATIENT QUESTIONNAIRE 2023-03-22 05:01:00 Doctor Unassigned, [place] [facility] XR KNEE <3 VW RIGHT 2023-02-12 20:28:46 Nicolette Eugene [facility] ASSIGNMENT OF BENEFITS 2023-02-12 20:08:20 Docjorje r Unassigned, [place] [facility] CONSENT/REFUSAL FOR DIAGNOSIS AND TREATMENT 2023-02-12 18:30:04 Doctor Unassigned, [place] [facility] REFERRAL- REQUEST/RESPONSE 2022-11-12 05:01:00 Doctor Unassigned, [place] [facility] FREE T4 2022-10-22 20:08:00 Oneyda Jain [facility] THYROID STIMULATING HORMONE 2022-10-22 20:08:00 Oneyda Jain [facility] CBC WITH DIFF 2022-10-22 20:08:00 Oneyda Jain [facility] FREE T3 2022-10-22 20:08:00 Oneyda Jain [facility] ASSIGNMENT OF BENEFITS 2022-09-23 18:54:21 Docjorje r Unassigned, [place] [facility] CONSENT/REFUSAL FOR DIAGNOSIS AND TREATMENT 2022-07-20 17:19:22 Doctor Unassigned, [place] [facility] XR CHEST 2 VW 2022-03-25 00:08:37 Agnieszka Drummond [facility] NOTICE OF PRIVACY PRACTICES 2022-03-24 23:40:32 Doctor Unassigned, [place] [facility] CONSENT/REFUSAL FOR DIAGNOSIS AND TREATMENT 2022-03-24 23:40:09 Doctor Unassigned, [place] [facility] Encounters Start Date/Time End Date/Time Encounter Type Admission Type Attending [facility] Care Facility Care Department Encounter ID Source 2021-06-23 08:50:59 Emergency [facility] [id number] [facility] 2021-06-20 14:30:09 Emergency [facility] [id number] [facility] 2024-06-07 15:20:00 2024-06-07 15:20:00 Outpatient SLOANE KIDD [id number] Shyla Keller 2024-06-01 07:00:00 2024-06-01 07:00:00 Outpatient R ONEYDA JAIN [facility] [id number] [facility] 2023-12-24 00:00:00 2023-12-24 00:00:00 Outpatient R RADIOLOGY [facility] [id number] [facility] 2023-12-02 13:00:00 2023-12-02 13:00:00 Outpatient R MALIKA HACKETT CRAIG [facility] [id number] [facility] 2023-12-01 08:30:00 2023-12-01 08:30:00 Outpatient SKYLER HARMAN [facility] [id number] [facility] 2023-08-13 00:00:00 2023-08-13 00:00:00 Patient Secure Veronica Sanz [facility] 1.2.840.114 350.1.13.10 4.2.7.2.686 [id number] [facility] 2023-08-12 10:30:00 2023-08-12 10:30:00 Outpatient R ASIF RUGGIERO [facility] [id number] [facility] 2023-08-06 10:30:00 2023-08-06 10:30:00 Outpatient R SHERRILL POWERS MARISOL [facility] [id number] [facility] 2023-07-26 00:00:00 2023-07-26 00:00:00 Outpatient R MELODY ABRAMS CHERYAL [facility] [id number] [facility] 2023-07-26 00:00:00 2023-07-26 00:00:00 Outpatient R MELODY ABRAMS CHERYAL [facility] [id number] [facility] 2023-07-23 16:30:00 2023-07-23 16:39:24 Outpatient R MASSEY-KEMI S, SHERRILL MASSEY-KEMI S, SHERRILL [facility] [id number] [facility] 2023-07-23 16:30:00 2023-07-23 16:39:24 Office Visit Massey-Kemi s, Sher[place] [facility] 1..840.114 350.1.13.10 4.2.7.2.686 [id number] [facility] 2023-07-23 00:00:00 2023-07-23 00:00:00 Orders Only Doctor Unassigned, [place] [facility] 1..840.114 350.1.13.10 4.2.7.2.686 [id number] [facility] 2023-07-22 13:00:00 2023-07-22 13:00:00 Outpatient R ASIF RUGGIERO [facility] [id number] [facility] 2023-07-22 00:00:00 2023-07-22 00:00:00 Patient Secure Msg Doctor Unassigned, [place] [facility] 1..840.114 350.1.13.10 4.2.7.2.686 [id number] [facility] 2023-07-14 07:30:00 2023-07-14 08:21:44 Outpatient R UNKNOWN, ATTENDING [facility] [id number] [facility] 2023-07-14 07:30:00 2023-07-14 08:21:44 Er Tech Visit Lab, Ang - Db Unknown, Attending [facility] 1.840.114 350.1.13.10 4.2.7.2.686 [id number] [facility] 2023-06-30 14:30:00 2023-06-30 15:09:25 Outpatient R ONEYDA JAIN [facility] [id number] [facility] 2023-06-30 14:30:00 2023-06-30 15:09:25 Office Visit [facility] 1..840.114 350.1.13.10 4.2.7.2.686 [id number] [facility] 2023-06-30 00:00:00 2023-06-30 00:00:00 Patient Secure Msg Doctor Unassigned, [place] [facility] 1.840.114 350.1.13.10 4.2.7.2.686 [id number] [facility] 2023-06-29 00:00:00 2023-06-29 00:00:00 Patient Secure Msg Doctor Unassigned, [place] [facility] 1.84.114 350.1.13.10 4.2.7.2.686 [id number] [facility] 2023-06-25 12:08:26 2023-06-25 23:59:00 Outpatient R ONEYDA JAIN [facility] [id number] [facility] 2023-06-25 12:08:26 2023-06-25 23:59:00 Hospital Encounter Oneyda Jain [facility] 1.840.114 350.1.13.10 4.2.7.2.686 [id number] [facility] 2023-06-25 11:30:00 2023-06-25 12:03:59 Office Visit Oney[facility] Jain [facility] 1..840.114 350.1.13.10 4.2.7.2.686 [id number] [facility] 2023-06-24 00:00:00 2023-06-24 00:00:00 Telephone Oneyda Jain [facility] 1.840.114 350.1.13.10 4.2.7.2.686 [id number] [facility] 2023-05-07 09:30:00 2023-05-07 09:30:00 Outpatient DEBBIE MILLER ELISHA [facility] [id number] [facility] 2023-03-22 13:30:00 2023-03-22 14:43:09 [facility] [id number] [facility] 2023-03-22 13:30:00 2023-03-22 14:43:09 Office Visit Debbie Ignacio [facility] 1.840.114 350.1.13.10 4.2.7.2.686 [id number] [facility] 2023-03-22 00:00:00 2023-03-22 00:00:00 Orders Only Doctor Unassigned, [place] [facility] 1.840.114 350.1.13.10 4.2.7.2.686 [id number] [facility] 2023-03-05 09:50:00 2023-03-05 23:59:00 Outpatient ALLEY WADE [facility] [id number] [facility] 2023-03-05 09:00:00 2023-03-05 10:33:55 Office Visit Alley Herndon [facility] 1..840.114 350.1.13.10 4.2.7.2.686 [id number] [facility] 2023-03-01 13:30:00 2023-03-01 13:30:00 Outpatient R DEBBIE IGNACIO ELISHA [facility] [id number] [facility] 2023-02-18 13:00:00 2023-02-18 13:00:00 Outpatient R MELODY ABRAMS CHERYAL [facility] [id number] [facility] 2023-02-12 13:41:00 2023-02-12 17:02:00 Emergency X NICOLETTE EUGENE [facility] ERT [id number] [facility] 2023-02-12 13:41:00 2023-02-12 17:02:00 Emergency Nicolette Eugene [facility] 1.2.840.114 350.1.13.10 4.2.7.2.686 [id number] [facility] 2022-11-23 14:30:00 2022-11-23 14:30:00 Outpatient R MALIKA HACKETT [facility] [id number] [facility] 2022-11-12 00:00:00 2022-11-12 00:00:00 Orders Only Doctor Unassigned, [place] [facility] 1.2.840.114 350.1.13.10 4.2.7.2.686 [id number] [facility] 2022-10-30 00:00:00 2022-10-30 00:00:00 Outpatient R VERONICA VINCENT YU [facility] [id number] [facility] 2022-10-23 14:00:00 2022-10-23 14:20:55 Outpatient R VERONICA VINCENT YU [facility] [id number] [facility] 2022-10-23 14:00:00 2022-10-23 14:20:55 Office Visit Veronica Vincent [facility] 1.114 350.1.13.10 4.2.7.2.686 [id number] [facility] 2022-10-22 14:00:00 2022-10-22 14:48:04 Er Tech Visit Lab, Oneyda Lazo [facility] 1.114 350.1.13.10 4.2.7.2.686 [id number] [facility] 2022-10-22 14:00:00 2022-10-22 14:00:00 Outpatient R ONEYDA JAIN [facility] [id number] [facility] 2022-10-17 00:00:00 2022-10-17 00:00:00 Patient Secure Msg Doctor Unassigned, [place] [facility] 1.114 350.1.13.10 4.2.7.2.686 [id number] [facility] 2022-10-15 16:30:00 2022-10-15 17:27:57 Outpatient R ONEYDA JAIN [facility] [id number] [facility] 2022-10-15 16:30:00 2022-10-15 17:27:57 [facility] 1.84114 350.1.13.10 4.2.7.2.686 [id number] [facility] 2022-10-07 00:00:00 2022-10-07 00:00:00 Telephone Melody Abrams [facility] 1.114 350.1.13.10 4.2.7.2.686 [id number] [facility] 2022-10-02 00:00:00 2022-10-02 00:00:00 Patient Secure Msg Vimal Jainlie A [facility] 1.840.114 350.1.13.10 4.2.7.2.686 [id number] [facility] 2022-09-24 00:00:00 2022-09-24 00:00:00 Telephone Melody Abrams [facility] CLINIC 1.2840.114 350.1.13.10 4.2.7.2.686 [id number] [facility] 2022-09-23 13:45:00 2022-09-23 14:00:00 Er Tech Visit Vannesa, Adc Lab Main [facility] 1.840.114 350.1.13.10 4.2.7.2.686 [id number] [facility] 2022-09-23 13:45:00 2022-09-23 13:45:00 [facility] [id number] [facility] 2022-09-23 00:00:00 2022-09-23 00:00:00 Orders Only Doctor Unassigned, [place] [facility] 1.2840.114 350.1.13.10 4.2.7.2.686 [id number] [facility] 2022-07-30 00:00:00 2022-07-30 00:00:00 [facility] 1.840.114 350.1.13.10 4.2.7.2.686 [id number] [facility] 2022-07-30 00:00:00 2022-07-30 00:00:00 [facility]phone [facility] 1.2840.114 350.1.13.10 4.2.7.2.686 [id number] [facility] 2022-07-21 10:45:00 2022-07-21 10:45:00 Outpatient R MELODY ABRAMS CHERYAL [facility] [id number] [facility] 2022-07-20 11:30:00 2022-07-20 12:02:45 Outpatient R MELODY ABRAMS CHERYAL [facility] [id number] [facility] 2022-07-20 11:30:00 2022-07-20 12:02:45 Office Visit Melody Abrams [facility] 1.2.840.114 350.1.13.10 4.2.7.2.686 [id number] [facility] 2022-07-20 00:00:00 2022-07-20 00:00:00 Orders Only Doctor Unassigned, [place] [facility] 1.2.840.114 350.1.13.10 4.2.7.2.686 [id number] [facility] 2022-07-13 00:00:00 2022-07-13 00:00:00 Letter (Out) Melody Abrams [facility] 1.2.840.114 350.1.13.10 4.2.7.2.686 [id number] [facility] 2022-07-09 15:45:00 2022-07-09 15:45:00 Outpatient R VENKAT RIVERA [facility] [id number] [facility] 2022-07-09 15:45:00 2022-07-09 15:45:00 Outpatient R VENKAT RIVERA [facility] [id number] [facility] 2022-03-24 18:49:00 2022-03-24 20:14:00 Emergency X AGNIESZKA DRUMMOND [facility] ERT [id number] [facility] 2022-03-24 18:49:00 2022-03-24 20:14:00 [facility] 1..114 350.1.13.10 4.2.7.2.686 [id number] 084 [id number] [facility] 2022-03-24 18:15:00 2022-03-24 18:35:00 Nurse Visit Nurse, Toby [facility] Rad Hunter [facility]?OLGAMarline [facility] MED[facility] OFF[facility] BU[facility] 1..114 350.1.13.10 4.2.7.2.686 [id number] [facility] 2022-03-24 18:15:00 2022-03-24 18:15:00 Outpatient RAD VELASQUEZ [facility] [id number] [facility] 2022-03-24 00:00:00 2022-03-24 00:00:00 Orders Only Doctor Unassigned, [place] [facility] 1.114 350.1.13.10 4.2.7.2.686 [id number] [facility] 2022-02-03 00:00:00 2022-02-03 00:00:00 Roseline Marte [facility] 1..114 350.1.13.10 4.2.7.2.686 [id number] [facility] 2022-01-05 09:00:00 2022-01-05 09:00:00 Outpatient R VERONICA VINCENT YU [facility] [id number] [facility] 2021-09-18 00:00:00 2021-09-18 00:00:00 Patient Secure Msg Oneyda Jain [facility] MEDICAL OFFICE BUILDING 1.84.114 350.1.13.10 4.2.7.2.686 [id number] 044 [id number] [facility] 2021-07-19 00:00:00 2021-07-19 00:00:00 Patient Secure Msg Doctor Unassigned, [place] [facility] 1.2840.114 350.1.13.10 4.2.7.2.686 [id number] [facility] 2021-07-15 00:00:00 2021-07-15 00:00:00 Patient Secure Msg Doctor Unassigned, [place] [facility] 1.2840.114 350.1.13.10 4.2.7.2.686 [id number] [facility] 2021-07-09 15:34:49 2021-07-09 16:43:55 Office Visit Ven[facility] 1..840.114 350.1.13.10 4.2.7.2.686 [id number] [facility] 2021-07-09 15:30:00 2021-07-09 16:43:55 Outpatient VENKAT MADDOX [facility] [id number] [facility] 2021-07-09 15:30:00 2021-07-09 15:30:00 Outpatient VENKAT MADDOX [facility] [id number] [facility] 2021-06-30 00:00:00 2021-06-30 00:00:00 Telephone Oneyda Jain [facility] MED[facility] OFF[facility] BUILDING 1.2.840.114 350.1.13.10 4.2.7.2.686 [id number] 044 [id number] [facility] 2021-06-28 10:30:00 2021-06-28 10:30:00 Outpatient ONEYDA GONGORA [facility] [id number] [facility] 2021-06-28 09:14:32 2021-06-28 09:29:32 Er Tech Visit Pob, Adc Lab Main Oneyda Jain [facility] 1.2.840.114 350.1.13.10 4.2.7.2.686 [id number] [facility] 2021-06-28 07:37:00 2021-06-28 09:12:00 Emergency X JESSICA CHAVEZ [facility] [id number] [facility] 2021-06-28 07:37:00 2021-06-28 09:12:00 Emergency Jessica Chavez [facility] 1.2.840.114 350.1.13.10 4.2.7.2.686 [id number] 084 [id number] [facility] 2021-06-23 00:00:00 2021-06-23 00:00:00 Letter (Out) Oneyda Jain [facility] MEDICAL OFFICE BUILDING 1.2.840.114 350.1.13.10 4.2.7.2.686 [id number] 044 [id number] [facility] 2021-06-21 00:00:00 2021-06-21 00:00:00 Patient Secure Msg Doctor Unassigned, [place] [facility] 1.2.840.114 350.1.13.10 4.2.7.2.686 [id number] 019 [id number] [facility] 2021-06-18 14:29:10 2021-06-18 15:24:57 Office Visit Oneyda Jain [facility] Medical Office Building 1.2.840.114 350.1.13.10 4.2.7.2.686 [id number] 044 [id number] [facility] 2021-06-18 14:30:00 2021-06-18 14:30:00 Outpatient R ONEYDA JAIN [facility] [id number] [facility] 2021-06-18 00:00:00 2021-06-18 00:00:00 Orders Only Doctor Unassigned, [place] [facility] 1.2840.114 350.1.13.10 4.2.7.2.686 [id number] [facility] 2021-06-17 00:00:00 2021-06-17 00:00:00 Letter (Out) Nurse, Toby Lakhani [facility] Building 1.2840.114 350.1.13.10 4.2.7.2.686 [id number] [id number] [facility] 2021-05-26 00:00:00 2021-05-26 00:00:00 Outpatient R RADIOLOGY [facility] [id number] [facility] 2021-05-19 00:00:00 2021-05-19 00:00:00 Refill Oneyda Jain [facility] Office Building One 1..114 350.1.13.10 4.2.7.2.686 [id number] 044 [id number] [facility] 2021-05-08 00:00:00 2021-05-08 00:00:00 Patient Secure Venkat Xie [facility] BUILDING 1.840.114 350.1.13.10 4.2.7.2.686 [id number] [facility] 2021-03-08 08:05:00 2021-03-08 09:57:00 Emergency Jessica Chavez [facility] 1.2840.114 350.1.13.10 4.2.7.2.686 [id number] [facility] 2021-03-08 00:00:00 2021-03-08 00:00:00 Orders Only Doctor Unassigned, [place] [facility] 1.20.114 350.1.13.10 4.2.7.2.686 [id number] [facility] 2020-11-30 20:00:00 2020-11-30 20:00:00 Outpatient [facility] [id number] [facility] 2020-11-09 19:15:00 2020-11-09 19:15:00 Outpatient Emmett ACUNAUMCAMILLA [facility] [id number] [facility] 2020-11-02 00:00:00 2020-11-02 00:00:00 Patient Outreach Gus Sherifesteban Naylor [facility] 1.0.114 350.1.13.10 4.2.7.2.686 [id number] [facility] 2020-10-31 00:00:00 2020-10-31 00:00:00 Refill Roseline Meza [facility] [place] 1.0.114 350.1.13.10 4.2.7.2.686 [id number] [facility] 2020-09-12 00:00:00 2020-09-12 00:00:00 Patient Secure Msg Doctor Unassigned, [place] [facility] OFFICE BUILDING ONE .0.114 350.1.13.10 4.2.7.2.686 [id number] [id number] [facility] 2020-09-12 00:00:00 2020-09-12 00:00:00 Patient Secure Msg Doctor Unassigned, [place] [facility] 1.840.114 350.1.13.10 4.2.7.2.686 [id number] [facility] 2020-09-10 13:08:06 2020-09-10 13:28:06 Urgent Care Provider, [facility]y [facility] Office Building One ..114 350.1.13.10 4.2.7.2.686 [id number] [facility] 2020-09-10 13:20:00 2020-09-10 13:20:00 Outpatient R TRAE WOOD [facility] [id number] [facility] 2020-08-30 09:45:00 2020-08-30 09:45:00 [id number] 2020-08-27 00:00:00 2020-08-27 00:00:00 Outpatient R MEZA, [facility] [id number] [facility] 2020-08-27 00:00:00 2020-08-27 00:00:00 Outpatient R MEZA, [facility] [id number] [facility] 2020-08-21 00:00:00 2020-08-21 00:00:00 Outpatient R RADIOLOGY [facility] [id number] [facility] 2020-08-20 10:00:00 2020-08-20 10:00:00 Outpatient R NANETTE ELENI [facility] [id number] [facility] 2020-08-07 09:28:14 2020-08-07 09:43:14 Office Visit MezaRoseline Ector [facility] .840.114 350.1.13.10 4.2.7.2.686 [id number] [facility] 2020-08-07 09:15:00 2020-08-07 09:15:00 Outpatient R MEZA, [facility] [id number] [facility] 2020-07-25 00:00:00 2020-07-25 00:00:00 Patient Secure Msg Doctor Unassigned, [place] [facility] OFFICE BUILDING ONE ..840.114 350.1.13.10 4.2.7.2.686 [id number] 044 [id number] [facility] 2020-07-22 00:00:00 2020-07-22 00:00:00 Refill Skyler Osorio [facility] Office Building One 1.84.114 350.1.13.10 4.2.7.2.686 [id number] [id number] [facility] 2020-07-22 00:00:00 2020-07-22 00:00:00 Refill Skyler Osorio [facility] Office Building One 1..114 350.1.13.10 4.2.7.2.686 [id number] [id number] [facility] 2020-07-22 00:00:00 2020-07-22 00:00:00 Refill Skyler Osorio [facility] Office Building One 1.84.114 350.1.13.10 4.2.7.2.686 [id number] 044 [id number] 2020-07-19 00:00:00 2020-07-19 00:00:00 Refill HarleenSkyler guaman darius [facility] Building 1.84.114 350.1.13.10 4.2.7.2.686 [id number] 044 [id number] [facility] 2020-07-19 00:00:00 2020-07-19 00:00:00 Refill Doctor Unassigned, [place] [facility] Building 1.84.114 350.1.13.10 4.2.7.2.686 [id number] [id number] [facility] 2020-07-19 00:00:00 2020-07-19 00:00:00 Refill Oneyda Jain [facility] Building 1.840.114 350.1.13.10 4.2.7.2.686 [id number] 044 [id number] [facility] 2020-07-19 00:00:00 2020-07-19 00:00:00 Refill Doctor Unassigned, [place] [facility] Office Building One 1.840.114 350.1.13.10 4.2.7.2.686 [id number] 044 [id number] [facility] 2020-07-19 00:00:00 2020-07-19 00:00:00 Refill Skyler Osorio [facility] Building 1.20.114 350.1.13.10 4.2.7.2.686 [id number] 2020-07-19 00:00:00 2020-07-19 00:00:00 Refill Doctor Unassigned, [place] [facility] Building 1..114 350.1.13.10 4.2.7.2.686 [id number] [id number] 2020-07-17 00:00:00 2020-07-17 00:00:00 Outpatient R RADIOLOGY [facility] [id number] [facility] 2020-04-18 08:45:00 2020-04-18 08:45:00 Outpatient R ZENAIDA DALEY [facility] [id number] [facility] 2020-04-18 00:00:00 2020-04-18 00:00:00 Patient Secure Msg Doctor Unassigned, [place] [facility] 1..114 350.1.13.10 4.2.7.2.686 [id number] [facility] 2020-04-18 00:00:00 2020-04-18 00:00:00 Letter (Out) Nhi [facility] 1..114 350.1.13.10 4.2.7.2.686 [id number] 019 [id number] [facility] 2020-04-18 00:00:00 2020-04-18 00:00:00 Letter (Out) Nhi [facility] 1.20.114 350.1.13.10 4.2.7.2.686 [id number] [id number] 2020-04-16 20:10:00 2020-04-16 20:59:00 Emergency Mee Loera [facility] 1.2.840.114 350.1.13.10 4.2.7.2.686 [id number] 084 [id number] [facility] 2020-04-16 20:10:00 2020-04-16 20:59:00 Emergency Mee Loera [facility] 1.2.840.114 350.1.13.10 4.2.7.2.686 [id number] 084 [id number] 2020-04-16 00:00:00 2020-04-16 00:00:00 Patient Secure Msg Doctor Unassigned, [place] [facility] Office Building One 1.2840.114 350.1.13.10 4.2.7.2.686 [id number] [id number] [facility] 2020-04-16 00:00:00 2020-04-16 00:00:00 Patient Secure Msg Doctor Unassigned, [place] [facility] Office Building One 1.2840.114 350.1.13.10 4.2.7.2.686 [id number] 2020-04-05 11:29:55 2020-04-05 12:03:59 Urgent Care Provider, [facility] Office Building One 1.2840.114 350.1.13.10 4.2.7.2.686 [id number] 044 [id number] [facility] 2020-04-05 11:29:55 2020-04-05 12:03:59 Urgent Care Provider, [facility] Office Building One 1.2840.114 350.1.13.10 4.2.7.2.686 [id number] 2020-04-05 11:40:00 2020-04-05 11:40:00 Outpatient R [facility] [id number] [facility] 2020-04-04 00:00:00 2020-04-04 00:00:00 Patient Secure Msg Doctor Unassigned, [place] [facility] OFFICE BUILDING ONE 1.2840.114 350.1.13.10 4.2.7.2.686 [id number] [facility] 2020-02-12 08:00:00 2020-02-12 08:00:00 Outpatient R NICOLE VENKAT [facility] [id number] [facility] 2019-12-20 00:00:00 2019-12-20 00:00:00 Telephone Oneyda Jain Marline [facility] Building 1.840.114 350.1.13.10 4.2.7.2.686 [id number] [facility] 2019-12-20 00:00:00 2019-12-20 00:00:00 Telephone Khushboo Jainpat Horan [facility] Building 1..114 350.1.13.10 4.2.7.2.686 [id number] 2019-12-18 10:30:00 2019-12-18 10:30:00 Outpatient R SKYLER OSORIO [facility] [id number] [facility] 2019-10-13 00:00:00 2019-10-13 00:00:00 Patient Secure Msg Doctor Unassigned, [place] [facility] 1..114 350.1.13.10 4.2.7.2.686 [id number] [facility] 2019-10-13 00:00:00 2019-10-13 00:00:00 Patient Secure Msg Doctor Unassigned, [place] [facility] 1.0.114 350.1.13.10 4.2.7.2.686 [id number] [id number] 2019-09-19 16:43:41 2019-09-26 13:56:02 Office Visit Trae [facility] Office Building One 1.2.840.114 350.1.13.10 4.2.7.2.686 [id number] 044 [id number] [facility] 2019-09-19 16:43:41 2019-09-19 17:03:41 Office Visit Trae [facility] Office Building One 1.2.840.114 350.1.13.10 4.2.7.2.686 [id number] 044 [id number] 2019-05-09 00:00:00 2019-05-09 00:00:00 Refill Khushboo Jaine [facility] Office Building One 1.2.840.114 350.1.13.10 4.2.7.2.686 [id number] [id number] [facility] 2019-05-02 00:00:00 2019-05-02 00:00:00 Telephone Belkis Maya [facility] 1.2.840.114 350.1.13.10 4.2.7.2.686 [id number] [facility] 2019-04-25 08:27:47 2019-04-25 23:59:00 Hospital Encounter Belkis Maya [facility] 1.2.840.114 350.1.13.10 4.2.7.2.686 [id number] [id number] [facility] 2019-04-25 08:27:25 2019-04-25 23:59:00 Hospital Encounter Belkis Maya [facility] 1.2.840.114 350.1.13.10 4.2.7.2.686 [id number] [facility] 2019-04-25 08:27:02 2019-04-25 23:59:00 Hospital Encounter Belkis MayaGilbertLiliGilbert [facility] 1.2.840.114 350.1.13.10 4.2.7.2.686 [id number] [facility] 2019-04-25 08:26:36 2019-04-25 08:26:36 Hospital Encounter Belkis Maya Tech, Adc Cardio Echo [facility] 1.2.840.114 350.1.13.10 4.2.7.2.686 [id number] [facility] 2019-04-25 08:26:10 2019-04-25 08:26:10 Hospital Encounter Belkis MayaGilbertLiliGilbert [facility] 1.2.840.114 350.1.13.10 4.2.7.2.686 [id number] [facility] 2019-04-25 00:00:00 2019-04-25 00:00:00 Orders Only Doctor Unassigned, [place] [facility] 1.2.840.114 350.1.13.10 4.2.7.2.686 [id number] [facility] 2019-04-04 00:00:00 2019-04-04 00:00:00 Telephone Oneyda Jain [facility] Office Building One 1.0.114 350.1.13.10 4.2.7.2.686 [id number] [id number] [facility] 2019-04-04 00:00:00 2019-04-04 00:00:00 Refill [facility] One 1.2840.114 350.1.13.10 4.2.7.2.686 [id number] [id number] [facility] 2019-04-03 00:00:00 2019-04-03 00:00:00 Refill Oneyda Jain [facility] Office Building One 1..840.114 350.1.13.10 4.2.7.2.686 [id number] [id number] [facility] 2019-03-17 00:00:00 2019-03-17 00:00:00 Orders Only Doctor Unassigned, [place] [facility] 1.2.840.114 350.1.13.10 4.2.7.2.686 [id number] [facility] 2019-03-16 00:00:00 2019-03-16 00:00:00 Telephone Belkis Maya [facility] Building 1..840.114 350.1.13.10 4.2.7.2.686 [id number] 059 [id number] [facility] Results Test Description Test Time Test Comments Results Result Co mments Source [facility] W/O SPECIFIC [id number] 19:27:00* Test Item Value Reference Range Interpretation Comme nts POCT PH U (test code = 3254) 6 mg/dl 5-8 POCT U LEUK EST (test code = 3263) Negative Negative - Negative POCT U NIT (test code = 3262) Negative Negative - Negati ve POCT U PROT (test code = 3259) Negative Negative - Negat jesica POCT U GLU (test code = 3256) Negative Negative - Negati ve POCT U KETONE (test code = 3258) Negative Negative - Neg ative POCT U BLD (test code = 3257) Negative Negative - Negati ve [facility] W/O SPECIFIC [id number] 19:27:00* Test Item Value Reference Range Interpretation Comme nts POCT PH U (test code = 3254) 6 mg/dl 5-8 POCT U LEUK EST (test code = 3263) Negative Negative - Negative POCT U NIT (test code = 3262) Negative Negative - Negati ve POCT U PROT (test code = 3259) Negative Negative - Negat jesica POCT U GLU (test code = 3256) Negative Negative - Negati ve POCT U KETONE (test code = 3258) Negative Negative - Neg ative POCT U BLD (test code = 3257) Negative Negative - Negati ve [facility]vineTHYROID STIMULATING [id number] 05:44:08 * Test Item Value Reference Range Interpretation Comme nts TSH (test code = 5431748721) 1.04 See_Comment [Automated messa ge] The system which generated this result transmitted reference range: 0.45 - 4.70 mIU/L. The reference range was not used to interpret this result as normal/abnormal. Lab Interpretation (test code = 14247-1) Normal [facility]vine[facility]YROID STIMULATING [id number] 05:44:08 * Test Item Value Reference Range Interpretation Comme nts TSH (test code = 4454111681) 1.04 See_Comment [Automated messa ge] The system which generated this result transmitted reference range: 0.45 - 4.70 mIU/L. The reference range was not used to interpret this result as normal/abnormal. Lab Interpretation (test code = 99912-8) Normal [facility] [id number] 05:30:30* Test Item Value Reference Range Interpretation Comme nts FREE T4 (test code = 5774980584) 1.19 See_Comment [Automated messa ge] The system which generated this result transmitted reference range: 0.78 - 2.20 ng/dL:. The reference range was not used to interpret this result as normal/abnormal. Lab Interpretation (test code = 72510-6) Normal [facility] [id number] 05:30:30* Test Item Value Reference Range Interpretation Comme nts FREE T4 (test code = 5089725518) 1.19 See_Comment [Automated messa ge] The system which generated this result transmitted reference range: 0.78 - 2.20 ng/dL:. The reference range was not used to interpret this result as normal/abnormal. Lab Interpretation (test code = 96334-2) Normal [facility] [id number] 05:30:09* Test Item Value Reference Range Interpretation Comme nts FREE T3 (test code = 1369716090) 3.96 pg/mL 2.77-5.27 Lab Interpretation (test cod e = 86467-4) Normal [facility] [id number] 05:30:09* Test Item Value Reference Range Interpretation Comme nts FREE T3 (test code = 1101460275) 3.96 pg/mL 2.77-5.27 Lab Interpretation (test cod e = 27757-1) Normal [facility] WITH [id number] 21:51:29* Test Item Value Reference Range Interpretation Comme nts WBC (test code = 6690-2) 6.05 See_Comment [Automated messa ge] The system which generated this result transmitted reference range: 4.30 - 11.10 10*3/?L. The reference range was not used to interpret this result as normal/abnormal. RBC (test code = 789-8) 4.68 See_Comment [Automated messa ge] The system which generated this result transmitted reference range: 3.93 - 5.25 10*6/?L. The reference range was not used to interpret this result as normal/abnormal. HGB (test code = 718-7) 13.8 g/dL 11.6-15.0 HCT (test code = 4544-3) 42.6 % 35.7-45.2 MCV (test code = 787-2) 91.0 fL 80.6-95.5 MCH (test code = 785-6) 29.5 pg 25.9-32.8 MCHC (test code = 786-4) 32.4 g/dL 31.6-35.1 RDW-SD (test code = 60000-9) 43.0 fL 39.0-49.9 RDW-CV (test code = 788-0) 12.8 % 12.0-15.5 PLT (test code = 777-3) 299 See_Comment [Automated messa ge] The system which generated this result transmitted reference range: 166 - 358 10*3/?L. The reference range was not used to interpret this result as normal/abnormal. MPV (test code = 56281-4) 9.7 fL 9.5-12.9 NRBC/100 WBC (test code = 2403757694) 0.0 See_Comment [Automated me ssage] The system which generated this result transmitted reference range: 0.0 - 10.0 /100 WBCs. The reference range was not used to interpret this result as normal/abnormal. NRBC x10^3 (test code = 8064701351) See_Comment [Automated messa ge] The system which generated this result transmitted reference range: 10*3/?L. The reference range was not used to interpret this result as normal/abnormal. GRAN MAT (NEUT) % (test code = 770-8) 47.5 % IMM GRAN % (test code = 1801221979) 0.00 % LYMPH % (test code = 736-9) 35.0 % MONO % (test code = 5905-5) 7.9 % EOS % (test code = 713-8) 8.8 % BASO % (test code = 706-2) 0.8 % GRAN MAT x10^3(ANC) (test code = 9580530485) 2.87 10*3/uL 1.88-7.09 IMM GRAN x10^3 (test code = 2079655485) 0.00-0.06 LYMPH x10^3 (test code = 731-0) 2.12 10*3/uL 1.32-3.29 MONO x10^3 (test code = 742-7) 0.48 10*3/uL 0.33-0.92 EOS x10^3 (test code = 711-2) 0.53 10*3/uL 0.03-0.39 H BASO x10^3 (test code = 704-7) 0.05 10*3/uL 0.01-0.07 Lab Interpretation (test code = 98449-7) Abnormal [facility] WITH [id number] 21:51:29* Test Item Value Reference Range Interpretation Comme nts WBC (test code = 6690-2) 6.05 See_Comment [Automated messa ge] The system which generated this result transmitted reference range: 4.30 - 11.10 10*3/?L. The reference range was not used to interpret this result as normal/abnormal. RBC (test code = 789-8) 4.68 See_Comment [Automated messa ge] The system which generated this result transmitted reference range: 3.93 - 5.25 10*6/?L. The reference range was not used to interpret this result as normal/abnormal. HGB (test code = 718-7) 13.8 g/dL 11.6-15.0 HCT (test code = 4544-3) 42.6 % 35.7-45.2 MCV (test code = 787-2) 91.0 fL 80.6-95.5 MCH (test code = 785-6) 29.5 pg 25.9-32.8 MCHC (test code = 786-4) 32.4 g/dL 31.6-35.1 RDW-SD (test code = 56074-8) 43.0 fL 39.0-49.9 RDW-CV (test code = 788-0) 12.8 % 12.0-15.5 PLT (test code = 777-3) 299 See_Comment [Automated messa ge] The system which generated this result transmitted reference range: 166 - 358 10*3/?L. The reference range was not used to interpret this result as normal/abnormal. MPV (test code = 14058-8) 9.7 fL 9.5-12.9 NRBC/100 WBC (test code = 5029638346) 0.0 See_Comment [Automated [employer] ssage] The system which generated this result transmitted reference range: 0.0 - 10.0 /100 WBCs. The reference range was not used to interpret this result as normal/abnormal. NRBC x10^3 (test code = 2868898940) See_Comment [Automated messa ge] The system which generated this result transmitted reference range: 10*3/?L. The reference range was not used to interpret this result as normal/abnormal. GRAN MAT (NEUT) % (test code = 770-8) 47.5 % IMM GRAN % (test code = 7344611174) 0.00 % LYMPH % (test code = 736-9) 35.0 % MONO % (test code = 5905-5) 7.9 % EOS % (test code = 713-8) 8.8 % BASO % (test code = 706-2) 0.8 % GRAN MAT x10^3(ANC) (test code = 3636096805) 2.87 10*3/uL 1.88-7.09 IMM GRAN x10^3 (test code = 7757596592) 0.00-0.06 LYMPH x10^3 (test code = 731-0) 2.12 10*3/uL 1.32-3.29 MONO x10^3 (test code = 742-7) 0.48 10*3/uL 0.33-0.92 EOS x10^3 (test code = 711-2) 0.53 10*3/uL 0.03-0.39 H BASO x10^3 (test code = 704-7) 0.05 10*3/uL 0.01-0.07 Lab Interpretation (test code = 75773-3) [facility] [id number] 04:15:00* Test Item Value Reference Range Interpretation Comme nts SODIUM (test code = NA) 139 MMOL/L 136-143 N POTASSIUM (test code = K) 4.3 MMOL/L 3.5-5.1 N CHLORIDE (test code = CL) 103 MMOL/L 98-107 N CARBON DIOXIDE (test code = CO2) 24 mmol/L 24-31 N GLUCOSE (test code = GLU) 147 mg/dL 70-104 H BLOOD UREA NITROGEN (test code = BUN) 11.1 MG/DL 7.0-21.0 N GLOMERULAR FILTRATION RATE (test code = GFR) >=60 max estimate >60 The estimated glomerular filtration rate is computed usingpatient race, age (>18), sex, and serum creatinine. If anyof the needed data elements are missing the Laboratory cannot compute an estimation of the glomerular filtration rate. CREATININE (test code = CREAT) 0.5 mg/dL 0.8-1.5 L ALBUMIN (test code = ALB) 4.2 G/DL 3.5-5.0 N CALCIUM (test code = CA) 8.7 mg/dL 8.8-10.2 L PHOSPHOROUS (test code = PHOS) 3.5 mg/dL 2.7-4.5 N [id number] 00:22:00* Test Item Value Reference Range Interpretation Comme nts GLUBED (test code = GLUBED) 150 MG/DL 70-105 H [id number] 18:17:00* Test Item Value Reference Range Interpretation Comme nts GLUBED (test code = GLUBED) 148 MG/DL 70-105 H UR HCG [id number] 12:12:00* Test Item Value Reference Range Interpretation Comme nts UR HCG QUAL (test code = HCGQLU) NEGATIVE NEGATIVE Notes Date/Time Note Provider Source 2023-03-22 13:30:00 Addended by: DEBBIE IGNACIO MD on: 03/22/2023 02:58 PM Modules accepted: Orders [facility]
[2024-10-31] MEDS ORDERED: ALBUTEROL 2.5 MG/3 ML NEB SOL ONE (18:16)
[2024-10-31] MEDS ORDERED: METHYLPREDNISOLONE 125 MG INJ ONE (18:16)
[2024-10-31] MEDS ORDERED: IPRATROPIUM BROM 0.5MG/2.5ML ONE (18:16)
[2024-10-31] MEDS ORDERED: MAGNESIUM SULFATE 1 gm IVPB 1 GM/100 ML BAG IV ONE (18:17)
--- NOTE | 2024-10-31 18:17 | RAD REPORT ---
EXAMINATION: ONE VIEW CHEST XR CLINICAL INDICATION: Cough;Congestion TECHNIQUE: Frontal chest projection is submitted. Examination is limited by patient positioning and t echnique. COMPARISON: 07/22/2020 FINDINGS: The lungs are well inflated and clear. The heart is upper limit of normal in size. No displaced fract ures identified. IMPRESSION: No acute intrathoracic abnormalities.
[2024-10-31 18:25] LABS: Absolute Basophils 0.1 K/uL (0-0.5); Absolute Eosinophils 0.8 K/uL (0-0.5); Absolute Lymphocytes (CBC) 2.2 K/uL (0.7-4.9); Absolute Monocytes 0.6 K/uL (0.1-1.3); Absolute Neutrophil 2.7 K/uL (1.8-8.0); Eosinophils % 13.2 % (0-4.4); Hematocrit 44.5 % (36.0-45.0); Hemoglobin 14.8 g/dL (12.0-15.0); Lymphocytes % 34.7 % (15.3-44.8); MCH 29.5 pg (27.0-35.0); MCHC 33.3 g/dL (32.0-36.0); MCV 88.6 fL (80-100); MPV 7.8 fL (7.6-11.3); Neutrophils % 42.1 % (41.7-73.7); Nucleated Red Blood Cells % 0.2 % (0-0); Platelets 267 thou/uL (152-406); RBC Red Blood Cell Count 5.03 M/uL (3.86-4.86); Red Cell Distribution Width 13.4 % (12.1-15.2)
[2024-10-31 18:43] LABS: Influenza A Ag Negative; Influenza B Ag Negative; SARS-CoV-2 Antigen Rapid Res Negative (Negative)
[2024-10-31 18:49] LABS: Anion Gap 6.9 mEq/L (5.0-15.0)
[2024-10-31 18:54] LABS: Potassium 3.9 mEq/L (3.5-5.1)
--- NOTE | 2024-10-31 20:01 | EDPHYS ---
Physician Documentation [facility] Name: Salud Carlton Age: 64 yrs Sex: Female : 1960 Arrival Date: 10/31/2024 Time: 17:07 Bed 5 Private MD: ED Physician Abdifatah Stewart HPI: 10/31 20:43 This 64 yrs old Female presents to ER via Ambulatory with complaints of kb Breathing Difficulty, Vaginal Pain, Vaginal Itching. 20:43 Pt is a 64 year old female who presents for shortness of breath, wheezing and cough kb that started about one month ago. States symptoms aren't improving. Reports history of asthma. Denies fever. Historical: - Allergies: 17:19 No Known Allergies; ap3 - PMHx: 17:19 Asthma; ap3 - Immunization history:: Client reports receiving the 2nd dose of the Covid vaccine, Flu vaccine status is unknown. - Infectious Disease History:: Denies. - Social history:: Smoking status: Patient/guardian denies using tobacco. ROS: 20:43 Constitutional: As per HPI kb Exam: 20:43 Constitutional: This is a well developed, well nourished patient who is awake, alert, kb and in no acute distress. Head/Face: Normocephalic, atraumatic. ENT: Moist Mucous membranes Cardiovascular: Regular rate Skin: Warm, dry with normal turgor. Normal color. MS/ Extremity: Pulses equal, no cyanosis. Neurovascular intact. Full, normal range of motion. Neuro: Awake and alert, GCS 15, oriented to person, place, time, and situation. 20:43 Respiratory: the patient does not display signs of respiratory distress, Respirations: normal, Breath sounds: wheezing: inspiratory expiratory that is moderate, is heard diffusely, Vital Signs: 17:16 BP 140 / 85; Pulse 89; Resp 18; Temp 98.2(O); Pulse Ox 96% on R/A; Weight 90.72 kg; ap3 Height 5 ft. 3 in. ; Pain 0/10; 18:25 BP 138 / 76; Pulse 84; Resp 18; Pulse Ox 97% on R/A; ld1 20:56 BP 131 / 72; Pulse 82; Resp 16; Temp 98.1; Pulse Ox 100% ; dd2 17:16 Body Mass Index 35.43 (90.72 kg, 160.02 cm) ap3 17:16 Pain Scale: Adult ap3 MDM: 17:13 Medical Screening Exam initiated kb 20:45 Differential diagnosis: asthma, Bronchitis Chronic Obstructive Pulmonary Disease kb pneumonia, asthma. Data reviewed: vital signs, nurses notes. Counseling: I had a detailed discussion with the patient and/or guardian regarding the historical points, exam findings, and any diagnostic results supporting the discharge/admit diagnosis, lab results, radiology results, the need for outpatient follow up, a family practitioner, to return to the emergency department if symptoms worsen or persist or if there are any questions or concerns that arise at home. 20:46 Response to treatment: the patient's symptoms have markedly improved after treatment. kb 10/31 17:52 Order name: CBC with Diff; Complete Time: 18:46 kb 10/31 17:52 Order name: BMP; Complete Time: 18:55 kb 10/31 17:52 Order name: COVID-19 Ag + Flu A+B Ag; Complete Time: 18:46 kb 10/31 17:52 Order name: Chest Single View XRAY; Complete Time: 18:20 kb 10/31 17:52 Order name: IV Start; Complete Time: 18:07 kb Administered Medications: 18:24 Drug: Albuterol Inhalation 2.5 mg Inhalation once Route: Inhalation; ld1 19:10 Follow up: Response: No adverse reaction dd2 18:24 Drug: Ipratropium Inhalation Aerosol 0.5 mg Inhalation once Route: Inhalation; ld1 19:10 Follow up: Response: No adverse reaction dd2 18:24 Drug: Magnesium Sulfate IVPB 1 grams IVPB once over 1 hrs Route: IVPB; Infused Over: 1 ld1 hrs; Site: right forearm; 19:30 Follow up: IV Status: Completed infusion dd2 18:24 Drug: MethylPrednisoLONE IVP 125 mg IVP once Route: IVP; Site: right forearm; ld1 19:10 Follow up: Response: No adverse reaction dd2 Disposition Summary: 10/31/24 20:00 Discharge Ordered Notes: Location: Home kb Condition: Stable kb Diagnosis - Unspecified asthma with (acute) exacerbation kb Followup: kb - With: Emergency Department - When: As needed - Reason: Worsening of condition Followup: kb - With: Private Physician - When: 2 - 3 days - Reason: Recheck today's complaints, Continuance of care, Re-evaluation by your physician Discharge Instructions: - Discharge Summary Sheet kb - Asthma, Adult, [id number] kb Forms: - Medication Reconciliation Form kb - Antibiotic Education kb - Prescription Opioid Use kb - Patient Portal Instructions kb - Leadership Thank You Letter kb Prescriptions: - albuterol sulfate 90 mcg/actuation Inhalation HFA Aerosol Inhaler - inhale 2 puff INHALATION route every 4-6 hours As needed; 1 unit; Refills: 0, kb Product Selection Permitted - Prednisone 20 mg Oral Tablet - take 1 tablet ORAL route once daily for 5 days; 5 tablet; Refills: 0, Product kb Selection Permitted - Albuterol Sulfate 2.5 mg /3 mL (0.083 %) Inhalation Solution for Nebulization - inhale 1 unit NEBULIZATION route every 8 hours As needed; 1 Unspecified; kb Refills: 0, Product Selection Permitted Signatures: Dispatcher [employer] Deysi Rojas, Davina Garcia RN RN ap3 Sri Falcon RN RN ld1 PEDRO NOVOA RN dd2
--- NOTE | 2024-10-31 20:01 | ER ---
Nurse's Notes [facility] Name: Salud Carlton Age: 64 yrs Sex: Female : 1960 Arrival Date: 10/31/2024 Time: 17:07 Bed 5 Private MD: Diagnosis: Unspecified asthma with (acute) exacerbation Presentation: 10/31 17:16 Chief complaint: Patient states: "i have been wanting to come for about a month, i have ap3 been having trouble breathing and stuff." patient reports that "the other day, i got got knot in my stomach and it took me a while to catch my breath, it wasn't the first time it happened and it scared me." patient reports cough/congestion in the morning. patient reports "diarrhea sometimes." patient denies pain. in regards to the vaginal complaint. patient states "i'm always wet. so i thought i would mention it.". Coronavirus screen: At this time, the client does not indicate any symptoms associated with coronavirus-19. Ebola Screen: No symptoms or risks identified at this time. Initial Sepsis Screen: Does the patient meet any 2 criteria? No. Patient's initial sepsis screen is negative. Does the patient have a suspected source of infection? No. Patient's initial sepsis screen is negative. Risk Assessment: Do you want to hurt yourself or someone else? Patient reports no desire to harm self or others. Onset of symptoms is unknown. 17:16 Method Of Arrival: Ambulatory ap3 17:16 Acuity: LIZY 3 ap3 Triage Assessment: 17:19 General: Appears in no apparent distress. Behavior is calm, cooperative, appropriate ap3 for age. Pain: Denies pain. Neuro: Level of Consciousness is awake, alert, obeys commands, Oriented to person, place, time, situation. Cardiovascular: Patient's skin is warm and dry. Respiratory: Reports cough that is Airway is patent Respiratory effort is even, unlabored, Respiratory pattern is regular, symmetrical, Onset: The symptoms/episode began/occurred. Respiratory: the patient has mild shortness of breath. : Reports "im always wet.". Historical: - Allergies: 17:19 No Known Allergies; ap3 - PMHx: 17:19 Asthma; ap3 - Immunization history:: Client reports receiving the 2nd dose of the Covid vaccine, Flu vaccine status is unknown. - Infectious Disease History:: Denies. - Social history:: Smoking status: Patient/guardian denies using tobacco. Screenin:20 [facility] ED Fall Risk Assessment (Adult) History of falling in the last 3 months, ap3 including since admission Yes- single mechanical fall (1 pt) Confusion or Disorientation No (0 pts) Intoxicated or Sedated No (0 pts) Impaired Gait No (0 pts) Mobility Assist Device Used No (0 pt) Altered Elimination No (0 pt) Score/Fall Risk Level 0 - 2 = Low Risk Oriented to surroundings, Maintained a safe environment, Educated pt \\T\\ family on fall prevention, incl call for assistance when getting out of bed, Assessed \\T\\ reinforced patient's understanding of fall precautions, Hourly rounding (assess needs \\T\\ fall precautionary measures) done, Used ambulatory aids as needed (educated on \\T\\ assisted with). Abuse screen: Denies threats or abuse. Nutritional screening: No deficits noted. Tuberculosis screening: No symptoms or risk factors identified. Assessment: 18:25 General: Appears in no apparent distress. comfortable, Behavior is calm, cooperative, ld1 appropriate for age. Pain: Denies pain. Neuro: Level of Consciousness is awake, alert, obeys commands, Oriented to person, place, time, situation. Cardiovascular: Capillary refill < 3 seconds Patient's skin is warm and dry. Rhythm is sinus rhythm. Respiratory: Airway is patent Respiratory effort is even, unlabored, Breath sounds are clear bilaterally. the patient has mild shortness of breath. GI: Abdomen is flat, non-distended. : No signs and/or symptoms were reported regarding the genitourinary system. EENT: No signs and/or symptoms were reported regarding the EENT system. Derm: No signs and/or symptoms reported regarding the dermatologic system. Musculoskeletal: No signs and/or symptoms reported regarding the musculoskeletal system. Vital Signs: 17:16 BP 140 / 85; Pulse 89; Resp 18; Temp 98.2(O); Pulse Ox 96% on R/A; Weight 90.72 kg; ap3 Height 5 ft. 3 in. ; Pain 0/10; 18:25 BP 138 / 76; Pulse 84; Resp 18; Pulse Ox 97% on R/A; ld1 20:56 BP 131 / 72; Pulse 82; Resp 16; Temp 98.1; Pulse Ox 100% ; dd2 17:16 Body Mass Index 35.43 (90.72 kg, 160.02 cm) ap3 17:16 Pain Scale: Adult ap3 ED Course: 17:10 Patient arrived in ED. cj3 17:13 [facility] kb 17:13 Abdifatah Stewart MD is Attending Physician. kb 17:19 Triage completed. ap3 17:21 Arm band placed on left wrist. ap3 18:06 Initial lab(s) drawn, by me, sent to lab. Inserted saline lock: 20 gauge in right zm forearm, using aseptic technique. Blood collected. Flushed with 10 mL NS. 18:07 COVID-19 Ag + Flu A+B Ag Sent. zm 18:07 BMP Sent. zm 18:07 CBC with Diff Sent. zm 18:13 Chest Single View XRAY In Process Unspecified. EDMS 18:24 Sri Falcon, RN is Primary Nurse. ld1 18:26 Patient has correct armband on for positive identification. Placed in gown. Bed in low ld1 position. Call light in reach. Side rails up X2. Pulse ox on. NIBP on. Door closed. Noise minimized. Warm blanket given. 18:26 No provider procedures requiring assistance completed. ld1 20:58 Provided Education on: D/C EDUCATION. dd2 20:58 IV discontinued, intact, bleeding controlled, No redness/swelling at site. Pressure dd2 dressing applied. Administered Medications: 18:24 Drug: Albuterol Inhalation 2.5 mg Inhalation once Route: Inhalation; ld1 19:10 Follow up: Response: No adverse reaction dd2 18:24 Drug: Ipratropium Inhalation Aerosol 0.5 mg Inhalation once Route: Inhalation; ld1 19:10 Follow up: Response: No adverse reaction dd2 18:24 Drug: Magnesium Sulfate IVPB 1 grams IVPB once over 1 hrs Route: IVPB; Infused Over: 1 ld1 hrs; Site: right forearm; 19:30 Follow up: IV Status: Completed infusion dd2 18:24 Drug: MethylPrednisoLONE IVP 125 mg IVP once Route: IVP; Site: right forearm; ld1 19:10 Follow up: Response: No adverse reaction dd2 Medication: 18:26 VIS not applicable for this client. ld1 Outcome: 20:00 Discharge ordered by . kelly 20:58 Discharged to home ambulatory, dd2 20:58 Condition: stable 20:58 Discharge instructions given to patient, Instructed on discharge instructions, follow up and referral plans. medication usage, Demonstrated understanding of instructions, follow-up care, medications, Prescriptions given X 3, 20:59 Patient left the ED. dd2 Signatures: Dispatcher [employer] EDMS Deysi Ignacio, Davina aGrcia RN RN ap3 Sri Falcon RN RN ld1 Ilene Salter DIANA, RN RN dd2 Clari Kearney cj3 Corrections: (The following items were deleted from the chart) 17:20 17:16 Chief complaint: Patient states: "i have been wanting to come for about a month, ap3 i have been having trouble breathing and stuff." patient reports that "the other day, i got got knot in my stomach and it took me a while to catch my breath, it wasn't the first time it happened and it scared me." patient reports cough/congestion in the morning. patient reports "diarrhea sometimes." patient denies pain. ap3
[2024-10-31 21:56] VITALS: BP 131/72; TEMP 98.1; O2SAT 100
== END 2024-10-31 20:59 | disposition home or self-care (01) ==
LOC: ER 17:07
DX: J45.901 Unspecified asthma with (acute) exacerbation (principal); Z11.52 Encounter for screening for COVID-19
CPT/HCPCS: 36415; 71045; 80048; 85025; 87428; 96365; 96375; 99285; J2919; J3475; J7613; J7644